=== PATIENT | female | born 1940 | race Caucasian/White ===

== ENCOUNTER 2017-11-09 12:36 | Inpatient (IN) | payer MEDICARE, MEDICAID ==
[~2017-11-09] VITALS: Ht 177.8 cm; Wt 102.0 kg
[~2017-11-09 12:36] MED LIST: ACIPHEX20 MG PO; AUGMENTIN875 MG OR; CELEBREX200 MG OR; DITROPAN5 MG/TA1 PO; LEVOTHYROXIN50 MCG PO; LORTAB 7.5 OR; MECLIZINE25 MG PO; PACERONE200 MG OR; PERCOCET 5/325M1 TAB PO; ZOCOR20 M1 PO; ZOLOFT50 MG PO
--- NOTE | 2017-11-09 12:47 | NUR ---
PT TO ROOM PER EMS
--- NOTE | 2017-11-09 13:12 | NUR ---
PT MEDICATED WITH 10 MG OF MORPHINE AND TAKEN TO XRAY.
[2017-11-09 13:24] LABS: HEMATOCRIT 43.5 % (37.0-47.0); HEMOGLOBIN 13.7 g/dl (12.0-16.0); IMMATURE GRANULOCYTES 0.5 % (0.0-1.0); MEAN CELL VOLUME 100.5 fL CALC (80.0-100.0); MEAN CORPUSCULAR HGB 31.6 pG CALC (26.0-32.0); MEAN CORPUSCULAR HGB CONC 31.5 g/L CALC (32.0-36.0); NEUT# 4.63 thou/uL (2.00-7.15); RED BLOOD COUNT 4.33 mill/uL (4.20-5.60); RED CELL DISTRI WIDTH 14.3 % (11.5-15.5)
[2017-11-09 13:43] LABS: ANION GAP 15 (6-22 (CALC)); BUN 21 mg/dL (8-23); BUN/CREATININE RATIO 21 (12-20 (CALC)); CALCIUM 9.8 mg/dL (8.4-10.2); CARBON DIOXIDE 24 mmol/l (22-30); CHLORIDE 110 mmol/l (95-108); GFR 54 ML/MIN (>=60 (CALC)); GFR FOR AFR.AMER. > 60 ML/MIN (>=60 (CALC)); GLUCOSE 95 mg/dL (82-115); POTASSIUM 4.2 mmol/l (3.5-5.1); SODIUM 145 mmol/l (137-146)
[2017-11-09 13:47] LABS: PROTHROMBIN TIME 10.7 SECONDS (9.0-12.5)
--- NOTE | 2017-11-09 14:22 | NUR ---
PT RETURNED FROM XRAY AND REPORTS PAIN IS 10/10 AND THE MORPHINE DID NOT HELP THE PAIN. VSS AND PT AWARE OF PENDING RESULTS AND WAIT TIME. MD NOTIFIED OF PAIN, AWAITING NEW ORDERS.
--- NOTE | 2017-11-09 15:00 | NUR ---
PT RESTING IN STRETCHER, FRINED AT BEDSIDE. PT DENIES ANY NEEDS AT THIS TIME AND AWARE OF PENDING RESULTS. PAIN NOW 03/30. AWARE
--- NOTE | 2017-11-09 15:30 | NUR ---
PATIENT RESTING AWAITING RESULTS FROM MD PATIENT STATES PAIN 8 ON 0-10 SCALE
--- NOTE | 2017-11-09 16:23 | NUR ---
PATIENT MEDICATED PER MD ORDER PAIN REDUCED 6 ON 0-10 SCALE
--- NOTE | 2017-11-09 17:00 | NUR ---
PT SITTING UPRIGHT IN STRETCHER EATING DINNER. PT PAIN NOW 4/10 AND IS AWARE OF PLAN FOR ADMISSION.
--- NOTE | 2017-11-09 17:19 | NUR ---
REPORT CALLED TO LORENZO ROSENBERG.
--- NOTE | 2017-11-09 17:29 | NUR ---
Admission Note Report Given to: SBAR PRINTED TO FLOOR Transported by: Wheelchair X Stretcher Transported with: X Nurse Transporter X Patent IV O2 Irrigation Installation Specialist
--- NOTE | 2017-11-09 17:30 | NUR ---
Admission Note Report Given to: LORENZO ROSENBERG. Transported by: Wheelchair X Stretcher Transported with: X Nurse Transporter X Patent IV O2 Professor Of Mechanical Engineering
--- NOTE | 2017-11-09 17:30 | NUR ---
FROM ER VIA STRETCHER ACCOMPANIED BY MIRANDA VENTURA. ASSISTED TO BED WITH MAX ASSIST. C/O NAUSEA AND PAIN ONLY WITH MOVEMENT. RIGHT LEG SHORTENING WITH ROTATION OUTWARD. ORIENTED TO ROOM AND CALL SYSTEM. SAFETY PRECAUTIONS REINFORCED. BED IN LOWEST POSITION WITH WHEELS LOCKED. CALL LIGHT WITHIN REACH. ENCOURAGED PT TO CALL FOR ANY NEEDS.
--- NOTE | 2017-11-09 18:00 | NUR ---
MEDICATED WITH ZOFRAN IVP FOR C/O NAUSEA.
[2017-11-09 18:03] VITALS: BP 133/60
--- NOTE | 2017-11-09 19:30 | NUR ---
BEDSIDE REPORT RECEIVED FROM PAO BURNS. PT IS RESTING IN BED IN SEMI FOWLERS. C/O PAIN WITH MOVEMENT TO RIGHT HIP. MORPHINE GIVEN DURING SHIFT CHANGE PRIOR TO VOID ON BEDPAN. RESPIRATIONS EVEN AND UNLABORED ON ROOM AIR. RIGHT LEG SHORTER THAN LEFT AND EXTERNALLY ROTATED. PLAN OF CARE DISCUSSED INCLUDING PLANNED SURGICAL PROCEDURE IN THE MORNING BY DR. ALEXANDRE. PT ENCOURAGED TO VERBALIZE CONCERNS. STATES UNDERSTANDING. SAFETY MEASURES IN PLACE. CALL LIGHT WITHIN REACH.
[2017-11-09 19:35] VITALS: BP 117/73
--- NOTE | 2017-11-09 20:40 | NUR ---
ANESTHSIA IN TO SEE PATIENT. PT AWARE THAT SHE WILL BE NPO AFTER MIDNIGHT AND MAY HAVE HER MORNING MEDICATIONS WITH SIPS OF WATER. SHE WAS ASSITED TO FRACTURE HOYOS TO VOID AFTER MORPHINE WAS EFFECTIVE AND TOLERATED WELL. ABRASION TO RIGHT ELBOW CLEANSED WITH NORMAL SALINE AND LEFT SPANISH LITERATURE PROFESSOR.
[2017-11-10] VITALS (10 sets, daily range): BP systolic 104–145; BP diastolic 40–59
--- NOTE | 2017-11-10 | NUR ---
PT TOLERATING DIET; IV CHANGED TO SALINE LOCK. PT DENIES ANY PAIN OR DISCOMFORT. PT ENCOURAGED TO USE IS IN ROOM. TELE IN PLACE. CALL LIGHT WITHIN REACH.
--- NOTE | 2017-11-10 00:12 | NUR ---
PT ASLEEP AT THIS TIME. ALL FLUIDS REMOVED AND PT AWARE THAT SHE IS NOW NPO. NO SIGNS OF DISTRESS NOTED; SHE SEEMS COMFORTABLE. RESPIRATIONS EVEN AND UNLABORED. HAS NO REQUESTS AT THIS TIME. CALL LIGHT WITHIN REACH.
--- NOTE | 2017-11-10 04:53 | NUR ---
PT HAS USED FRACTURE HOYOS TWICE TO VOID THIS SHIFT. RECEIVING MORPHINE AND LORTAB ALTENATELY TO MANAGE PAIN TO RIGHT HIP. HAS REMAINED NPO SICNE MIDNIGHT. MOVEMENT EXACERBATES PAIN. HAS NO FURTHER REQUESTS AT THIS TIME. SAFETY MEASURES IN PLACE. CALL LIGHT WITHIN REACH.
[2017-11-10 06:50] LABS: HEMATOCRIT 38.6 % (37.0-47.0)
--- NOTE | 2017-11-10 07:00 | NUR ---
RECEIVED BEDSIDE REPORT FROM ABDON CEDENO. RESTING IN SEMI FOWLERS WITH EYES CLOSED, AWAKENS EASILY. RESPS EVEN AND UNLABORED ON ROOM AIR. REPORTS PAIN IN RIGHT HIP 10/10 WITH MOVEMENT, WILL MEDICATE PER MAR. INSTRUCTED PT TO CONTINUE NPO STATUS, PT VERBALIZED UNDERSTANDING. PLAN OF CARE DISCUSSED. SAFETY PRECAUTIONS REINFORCED. BED IN LOWEST POSITION WITH WHEELS LOCKED. CALL LIGHT WITHIN REACH. WILL CONTINUE TO MONITOR.
--- NOTE | 2017-11-10 09:25 | NUR ---
DR TIMMONS IN WITH PT.
--- NOTE | 2017-11-10 09:40 | NUR ---
TO OR VIA BED ACCOMPANIED BY TAQUERIA VENTURA AND SOL VENTURA.
--- NOTE | 2017-11-10 13:45 | NUR ---
FROM OR VIA BED ACCOMPANIED BY TAUQERIA VENTURA AND SOL RN. RESPS EVEN AND UNLABORED ON O2 VIA NC. DRESSING TO RIGHT HIP CDI. SCD TO LEFT LOWER EXTREMITY. VOICES NO NEEDS AT THIS TIME. ORIENTED TO ROOM AND CALL SYSTEM. SAFETY PRECAUTIONS REINFORCED. BED IN LOWEST POSITION WITH WHEELS LOCKED. CALL LIGHT WIHTIN REACH. WILL CONTINUE TO MONITOR.
--- NOTE | 2017-11-10 17:28 | NUR ---
RESTING IN SEMI FOWLERS, #20 LW INFUSING WITHOUT DIFFICULTY, SITE APPEARS HEALTHY. RESPS EVEN AND UNLABORED ON ROOM AIR. DRESSING TO RIGHT HIP CDI, PEDAL PULSES PRESENT, TOES TO BILAT FEET WARM TO TOUCH. BRISK CAP REFILL, ICE PACK TO RIGHT HIP. HYPOACTIVE BOWEL SOUNDS TO 4 QUADS. TOLERATING ICE CHIPS WITHOUT C/O NAUSEA. SCD TO LEFT LOWER EXTREMITY. CALL LIGHT WITHIN REACH. WILL CONTINUE TO MONITOR.
--- NOTE | 2017-11-10 18:44 | NUR ---
TOLERATING CLEAR LIQUID DIET WITHOUT C/O NAUSEA. DENIES PAIN OR DISCOMFORT. CALL LIGHT WITHIN REACH.
--- NOTE | 2017-11-10 19:20 | NUR ---
PT WOKE FOR ASSESSMENT. PT DENIES ANY PAIN OR DISCOMFORT. RESP EVEN AND UNLABORED. NO DISTRESS NOTED. ABD SOFT; HYPOACTIVE BOWEL SOUNDS NOTED. TELE IN PLACE. PEDAL PULSES PALPATED BILAT. NO EDEMA NOTED. RIGHT HIP DRESSING CDI; NO S&S OF INFECTION. NO REDNESS OR EDEMA NOTED. IV LW PATENT; NO REDNESS OR EDEMA NOTED. PT EDUCATED ON INCENTIVE SPIROMETER; PT DEMONSTRATED USE. PT INSTRUCTED ON IMPORTANCE OF USE. FREQUENT ROUNDS MADE. SAFETY PRECAUTIONS REINFORCED. CALL LIGHT WITHIN REACH.
[2017-11-11 00:17] VITALS: BP 108/55
--- NOTE | 2017-11-11 04:00 | NUR ---
PT DENIES ANY PAIN OR DISCOMFORT. RESP EVEN AND UNLABORED. NO DISTRESS NOTED. TELE IN PLACE. IV PATENT; FLUSHED WITHOUT DIFFICULTY. PT ENCOURAGED TO COUGH & DEEP BREATHE. RIGHT HIP DRESSING;CDI. SAFETY PRECAUTIONS REINFORCED. CALL LIGHT WITHIN REACH.
[2017-11-11 05:11] VITALS: BP 115/63
[2017-11-11 05:57] LABS: HEMOGLOBIN 10.5 g/dl (12.0-16.0); MEAN CELL VOLUME 102.7 fL CALC (80.0-100.0); MEAN CORPUSCULAR HGB 31.7 pG CALC (26.0-32.0); MEAN CORPUSCULAR HGB CONC 30.9 g/L CALC (32.0-36.0); RED BLOOD COUNT 3.31 mill/uL (4.20-5.60); RED CELL DISTRI WIDTH 14.4 % (11.5-15.5)
[2017-11-11 06:24] LABS: ANION GAP 15 (6-22 (CALC)); BUN 19 mg/dL (8-23); BUN/CREATININE RATIO 19 (12-20 (CALC)); CALCIUM 8.9 mg/dL (8.4-10.2); CARBON DIOXIDE 24 mmol/l (22-30); CHLORIDE 107 mmol/l (95-108); GFR 54 ML/MIN (>=60 (CALC)); GFR FOR AFR.AMER. > 60 ML/MIN (>=60 (CALC)); GLUCOSE 100 mg/dL (82-115); POTASSIUM 4.1 mmol/l (3.5-5.1); SODIUM 142 mmol/l (137-146)
--- NOTE | 2017-11-11 07:00 | NUR ---
SHIFT CHANGE REPORT FORM SCOTT, PT AWAKE ALERT AND ORIENTED, C/O R. HIP PAIN @ 8/10 AT THIS TIME, ELIMINATION NEEDS ADDRESSED, O2 @ 2/ VIA NC IN PLACE, WILL ADDRESS NEEDS AND CONTINUE TO MONITOR, CALL LAZO IN REACH.
[2017-11-11 08:25] VITALS: BP 106/57
[2017-11-11 11:05] VITALS: BP 95/55
--- NOTE | 2017-11-11 11:51 | NUR ---
LETHARGIC AT THIS TIME AND FALLS ASLEEP DURING CONVERSATION WITH NURSE, MEDICATED FOR PAIN EARLIER WHICH MAY BE CAUSE FOR CONDITION. O2 REMOVED AND PT DESAT TO 85% ON R/A BUT IMPROVED WITH DEEP BREATHING. WILL CONTINUE TO MONITOR.
[2017-11-11 15:36] VITALS: BP 108/63
--- NOTE | 2017-11-11 16:07 | NUR ---
SLEEPING AT THIS TIME, BREATHING EVEN AND NON-LABORED, CALL LAZO IN REACH.
--- NOTE | 2017-11-11 16:12 | NUR ---
Talked to patient today about her medications. She stated that she felt lesser pain after her surgery. Discussed with patient about side effect of amiodarone. Pt. did not experience any side effects. Patient said to have dry mouth with sertraline, but overall tolerable with this medication. Patient said that percocet helps reduced her pain. Patient does not have any other questions to the pharmacy at this time.
--- NOTE | 2017-11-11 17:12 | NUR ---
PT WAS SEEN RESTING SUPINE IN THE BED. ATTEMPTED PM TX HOWEVER, PT REFUSED STATING THAT SHE WAS TOO DROWSY AND WOULD LIKE TO START PHYSICAL THERAPY TOMORROW.
[2017-11-11 19:00] VITALS: BP 120/71
--- NOTE | 2017-11-11 19:20 | NUR ---
PT WOKE FOR ASSESSMENT. PT LETHARGIC; ORIENTED TO MONTH AND PLACE. PT DENIES ANY PAIN OR DISCOMFORT. RESP EVEN AND UNLABORED WITH O2 IN PLACE. NO DISTRESS NOTED. PT ENCOURAGED TO USE IS IN ROOM; PT EDUCATED ON IMPORTANCE OF USING. ABD SOFT; HYPOACTIVE BOWEL SOUNDS NOTED. SURGICAL INCISIONS X2 TO RIGHT HIP; SMALL AMOUNT OF SEROSANGUINEOUS DRAINAGE NOTED. +1 EDEMA TO RIGHT LEG NOTED. PEDAL PULSES PALPATED BILAT. IV LW PATENT; FLUSHED WITHOUT DIFFICULTY. TELE IN PLACE. PT INCONTINENT OF URINE; 2 PERSON ASSIST; BED CHANGED; CARE PROVIDED TO PT. PT ENCOURAGED TO VERBALIZE CONCERNS. FREQUENT ROUNDS MADE. CALL LIGHT WITHIN REACH.
--- NOTE | 2017-11-12 00:10 | NUR ---
RESP EVEN AND UNLABORED WITH O2 IN PLACE. NO DISTRESS NOTED. TELE IN PLACE. BED ALARM ON FOR SAFETY PRECAUTION. CALL LIGHT WITHIN REACH.
[2017-11-12 00:47] VITALS: BP 128/50
--- NOTE | 2017-11-12 04:10 | NUR ---
RESP EVEN AND UNLABORED WITH O2 IN PLACE. NO DISTRESS NOTED. TELE IN PLACE. BED ALARM ON. CALL LIGHT WITHIN REACH.
[2017-11-12 04:33] VITALS: BP 110/57
[2017-11-12 06:15] LABS: HEMOGLOBIN 10.5 g/dl (12.0-16.0); IMMATURE GRANULOCYTES 0.7 % (0.0-1.0); MEAN CELL VOLUME 102.4 fL CALC (80.0-100.0); MEAN CORPUSCULAR HGB 31.6 pG CALC (26.0-32.0); MEAN CORPUSCULAR HGB CONC 30.9 g/L CALC (32.0-36.0); NEUT# 8.74 thou/uL (2.00-7.15); RED BLOOD COUNT 3.32 mill/uL (4.20-5.60); RED CELL DISTRI WIDTH 14.2 % (11.5-15.5)
[2017-11-12 06:36] LABS: ANION GAP 17 (6-22 (CALC)); BUN 20 mg/dL (8-23); BUN/CREATININE RATIO 23 (12-20 (CALC)); CALCIUM 8.9 mg/dL (8.4-10.2); CARBON DIOXIDE 24 mmol/l (22-30); CHLORIDE 105 mmol/l (95-108); CREATININE 0.9 mg/dL (0.5-1.0); GFR > 60 ML/MIN (>=60 (CALC)); GFR FOR AFR.AMER. > 60 ML/MIN (>=60 (CALC)); GLUCOSE 99 mg/dL (82-115); MAGNESIUM 1.9 mg/dL (1.6-2.3); POTASSIUM 4.6 mmol/l (3.5-5.1); SODIUM 142 mmol/l (137-146)
[2017-11-12 08:07] VITALS: BP 95/54
--- NOTE | 2017-11-12 08:20 | NUR ---
PT RESTING WITH EYES CLOSED; AROUSED EASILY TO VERBAL STIMULI; NO COMPLAINTS OF PAIN OR DISCOMFORT VOICED; DRSG TO RT HIP WITH MODERATE AMOUNT OF SEROUSAGINOUS DRAINAGE NOTED, AREA CLEANED WITH BETADINE AND TELFA APPLIED AND SECURED WITH LARGE TEGADERM; SCD TO LLE; PT A/O X2, REORIENTATION TO TIME SUCCESSFUL; CALL LAZO WITHIN REACH; WILL CONTINUE TO MONITOR.
[2017-11-12 11:39] VITALS: BP 113/41
--- NOTE | 2017-11-12 14:14 | NUR ---
PHYSICAL THERAPY IN WITH PT; PT MAX ASSIST TO RECLINER; CALL LAZO WITHIN REACH; BED ALARM IN PLACE FOR SAFETY; WILL CONTINUE TO MONITOR.
--- NOTE | 2017-11-12 14:18 | NUR ---
Pt. seen this PM for functional activity of transfer training. HOB elevated, pt. instructed on scooting and using UE's to assist. However after a few attempts nursing contacted to assist in scooting pt. to edge of bed, max assist x2 as pt. unable to advance right LE to edge of bed. Once sit at edge of bed reviewed with pt. sit to stand using UE's for push off, however was unable to stand. Reviewed with pt. pivot transfer followed by same with max assist x3 to recliner, pt. maintained flexed posture during transfer, minimally weight bearing on right LE. Sitting in recliner pt. instructed on and participated in AROM of knees and ankles. Pt. performed scooting forward and back sitting in recliner and used UE's on armrests to support herself. LE's elevated, call light reviewed and left within reach. Pt. left resting comfortably in recliner watching TV and without complaints. Nurse informed of same.
--- NOTE | 2017-11-12 15:15 | NUR ---
PT MAX ASSIST BACK TO BED; PT C/O NAUSEA; MEDICATED ORDERED; CALL LAZO WITHIN REACH; WILL CONTINUE TO MONITOR.
[2017-11-12] MEDS ORDERED: PERCOCET 10/31 COMBO PO (15:26)
[2017-11-12] MEDS ORDERED: XARELTO10 MG PO (15:26)
[2017-11-12 15:49] VITALS: BP 129/79
--- NOTE | 2017-11-12 18:15 | NUR ---
REPORT CALLED TO PIPO AT [facility]
== END 2017-11-12 19:30 | DRG 481 ==
LOC: ED 12:36 → ED-I 15:50 → ED 16:15 → MS2 16:16
PROVIDERS: Family Medicine; Internal Medicine Nephrology; Nurse Practitioner Family; ADMIT Internal Medicine; ATTEND Internal Medicine
PROC: 0QS604Z Reposition Right Upper Femur with Internal Fixation Device, Open Approach (ICD-10-PCS; principal; 2017-11-10)
DX: S72.141A Displaced intertrochanteric fracture of right femur, initial encounter for closed fracture (principal); I47.1 Supraventricular tachycardia; I48.1 Persistent atrial fibrillation; S50.312A Abrasion of left elbow, initial encounter; E03.9 Hypothyroidism, unspecified; E78.5 Hyperlipidemia, unspecified; M15.9 Polyosteoarthritis, unspecified; W17.89XA Other fall from one level to another, initial encounter; Y92.481 Parking lot as the place of occurrence of the external cause; Z79.899 Other long term (current) drug therapy
CPT/HCPCS: J1650

== ENCOUNTER 2018-03-12 06:44 | Day surgery (SDC) | payer MEDICARE, MEDICAID ==
[~2018-03-12] VITALS: Ht 177.8 cm; Wt 98.4 kg
[~2018-03-12 06:44] MED LIST changes: +PERCOCET 10/31 COMBO PO; +XARELTO10 MG PO
[2018-03-12 08:20] VITALS: BP 130/69
== END 2018-03-12 08:59 | disposition home or self-care (01) ==
LOC: ORM 06:44
PROVIDERS: ATTEND Anesthesiology Pain Medicine
PROC: 3E0R3BZ Introduction of Anesthetic Agent into Spinal Canal, Percutaneous Approach (ICD-10-PCS; principal; 2018-03-12)
PROC: 3E0R33Z Introduction of Anti-inflammatory into Spinal Canal, Percutaneous Approach (ICD-10-PCS; 2018-03-12)
DX: M51.36 Other intervertebral disc degeneration, lumbar region (principal); M12.9 Arthropathy, unspecified; M54.16 Radiculopathy, lumbar region
CPT/HCPCS: J1100; Q9967

== ENCOUNTER 2018-03-26 07:35 | Day surgery (SDC) | payer MEDICARE, MEDICAID ==
[~2018-03-26] VITALS: Ht 177.8 cm; Wt 90.7 kg
[2018-03-26 09:09] VITALS: BP 128/58
== END 2018-03-26 10:00 | disposition home or self-care (01) ==
LOC: ORM 07:35
PROVIDERS: ATTEND Anesthesiology Pain Medicine
PROC: 3E0U33Z Introduction of Anti-inflammatory into Joints, Percutaneous Approach (ICD-10-PCS; principal; 2018-03-26)
PROC: 3E0U3BZ Introduction of Anesthetic Agent into Joints, Percutaneous Approach (ICD-10-PCS; 2018-03-26)
DX: M76.31 Iliotibial band syndrome, right leg (principal); M25.551 Pain in right hip
CPT/HCPCS: J1100; Q9967

== ENCOUNTER 2019-07-13 15:34 | Emergency (ER) | payer MEDICARE, MEDICAID ==
[~2019-07-13] VITALS: Ht 177.8 cm; Wt 100.0 kg
[2019-07-13 16:13] LABS: HEMATOCRIT 44.5 % (37.0-47.0); HEMOGLOBIN 13.8 g/dl (12.0-16.0); MEAN CELL VOLUME 99.1 fL CALC (80.0-100.0); MEAN CORPUSCULAR HGB 30.7 pG CALC (26.0-32.0); NEUT# 7.43 thou/uL (2.00-7.15); RED BLOOD COUNT 4.49 mill/uL (4.20-5.60); RED CELL DISTRI WIDTH 13.7 % (11.5-15.5)
[2019-07-13 16:27] LABS: BILIRUBIN, TOTAL 0.8 mg/dL (0.0-1.4); CREATININE 1.1 mg/dL (0.5-1.0); POTASSIUM 4.6 mmol/l (3.5-5.1)
[2019-07-13 16:32] LABS: TOTAL PROTEIN 7.1 g/dL (6.3-8.2)
[2019-07-13] MEDS ORDERED: CELEBREX100 M1 PO (17:46)
[2019-07-13 19:24] VITALS: BP 119/72
== END 2019-07-13 18:50 | disposition short-term general hospital (02) ==
LOC: ED 15:34
PROVIDERS: Emergency Medicine
DX: R07.9 Chest pain, unspecified (principal); R79.89 Other specified abnormal findings of blood chemistry; R06.02 Shortness of breath

== ENCOUNTER 2020-06-16 14:58 | Inpatient (IN) | payer MEDICARE, MEDICAID ==
[~2020-06-16] VITALS: Ht 175.3 cm; Wt 100.5 kg
[2020-06-16] VITALS (7 sets, daily range): BP systolic 114–133; BP diastolic 52–68
[~2020-06-16 14:58] MED LIST changes: +CELEBREX100 M1 PO
--- NOTE | 2020-06-16 14:58 | NUR ---
PT TO ROOM VIA EMS
[2020-06-16] MEDS ORDERED: ELIQUIS5 MG PO (15:14)
[2020-06-16] MEDS ORDERED: FORTEO600 MCG/2. IN (15:14)
[2020-06-16] MEDS ORDERED: FERRAPLUS 90 PO (15:15)
[2020-06-16 15:18] LABS: IMMATURE GRANULOCYTES 0.2 % (0.0-5.0); MEAN CORPUSCULAR HGB 21.9 pG CALC (26.0-32.0); MEAN CORPUSCULAR HGB CONC 26.2 g/dL CAL (32.0-36.0); NEUT# 3.22 thou/uL (2.00-7.15); RED BLOOD COUNT 3.1 mill/uL (4.20-5.60); RED CELL DISTRI WIDTH 23.9 % (11.5-15.5)
[2020-06-16 15:26] LABS: MEAN CELL VOLUME 83.9 fL CALC (80.0-100.0)
[2020-06-16 15:27] LABS: HEMOGLOBIN 6.8 g/dl (12.0-16.0)
[2020-06-16 15:36] LABS: ALBUMIN 3.6 g/dL (3.2-5.0); ALKALINE PHOSPHATASE 75 u/l (38-126); ANION GAP 13 (6-22 (CALC)); BUN 20 mg/dL (8-23); BUN/CREATININE RATIO 19 (12-20 (CALC)); CARBON DIOXIDE 25 mmol/l (22-30); CHLORIDE 107 mmol/l (95-108); GFR 54 ML/MIN (>=60 (CALC)); GFR FOR AFR.AMER. > 60 ML/MIN (>=60 (CALC)); LIPASE 70 u/l (23-300); POTASSIUM 3.8 mmol/l (3.5-5.1); SGOT/AST 23 u/l (9-36); SODIUM 141 mmol/l (137-146); TOTAL PROTEIN 6.1 g/dL (6.3-8.2)
[2020-06-16 15:38] LABS: BILIRUBIN, TOTAL 0.4 mg/dL (0.0-1.4)
--- NOTE | 2020-06-16 17:17 | NUR ---
PT SEEN BY DR LYNCH, WAS SEEN TO HAVE LOW HGB. ONE UNIT PRBSs INFUSING AT THIS TIME WITHOUT ADVERSE REACTION. REPORT CALLED TO ABDON, PT TO FLOOR SOON.
--- NOTE | 2020-06-16 17:27 | NUR ---
PT ARRIVED TO UNIT VIA STRETCHER WITH ER STAFF; ALERT AND ORIENTED. AMBULATED TO BATHROOM TO VOID; SPECIMEN COLLECTED AND SENT TO LAB. AMBULATED TO BED TO SIT. BLOOD TRANSFUSION INFUSING UPON ARRIVAL AT 150 ML/HR; PT TOLERATING WELL. C/O 5/10 MIDSTERNAL CP THAT QUICKLY SUBSIDED; PT REPORTS THAT SHE THINKS IT WAS JUST GAS; NO OTHER SYMPTOMS; REVIEWED S/S OF REACTION AND PT DENIES ALL. RESPIRATIONS EVEN AND UNLABORED ON ROOM AIR; SPO2 100%; HUMIDIFIED OXYGEN 2L APPLIED PER ADMISSION ORDER. PT AWARE THAT WE NEED STOOL SPECIMENS; REPORTS 2 BOWEL MOVEMENTS PER WEEK HER NORMAL; LBM 2 DAYS AGO SOFT AND BLACK. LUNGS ARE CLEAR; NEURO CHECK WNL; 2+ ANKLE EDEMA; REPORTS URINARY STRESS INCONTINENCE. ORIENTED TO ROOM AND CALL LIGHT SYSTEM. PLAN OF CARE REVIEWED; PT ENCOURAGED TO VERBALIZE CONCERNS. STATES UNDERSTANDING. SAFETY MEASURES IN PLACE. CALL LIGHT WITHIN REACH.
--- NOTE | 2020-06-16 17:39 | NUR ---
TO FLOOR WITHOUT INCIDENT, REPORT WAS TO ABDON.
[2020-06-16 19:05] LABS: URINE BILIRUBIN - DIPSTICK NEGATIVE (NEGATIVE); URINE BLOOD DIPSTICK NEGATIVE (NEGATIVE); URINE COLOR YELLOW; URINE GLUCOSE - DIPSTICK NEGATIVE (NEGATIVE); URINE KETONE NEGATIVE (NEGATIVE); URINE LEUK ESTERASE NEGATIVE (NEGATIVE); URINE NITRITE - DIPSTICK POSITIVE (Negative); URINE PH 6.5 (4.5-8.0); URINE PROTEIN - DIPSTICK NEGATIVE (NEG-TRACE); URINE UROBILINOGEN - DIPSTICK 0.2 E.U./dL (0.2)
[2020-06-16 19:11] LABS: URINE BACTERIA MODERATE hpf; URINE RBC 0-2 RBC/hpf (0-5); URINE SQUAMOUS EPITHELIAL CELL FEW EPI/hpf (0-FEW); URINE WBC 0-2 WBC/hpf (0-5)
--- NOTE | 2020-06-16 19:34 | NUR ---
PT SITTING IN BED. A&O X3. NO DISTRESS NOTED. BLOOD TRANSFUSION COMPLETE. PT DENIES ANY PAIN OR NEW ONSET OF SYMPTOMS. VSS. IV FLUIDS CONNECTED AND SET AT 75 ML/HR PER MD ORDERS. NO OTHER NEEDS AT THIS TIME. ASSESSMENT COMPLETED. DISCUSSED POC. CALL LIGHT IN REACH. CONTINUE TO MONITOR.
--- NOTE | 2020-06-16 23:28 | NUR ---
PT SLEEPING IN BED. RESP EVEN AND UNLABORED. CONTINUE TO MONITOR.
[2020-06-17 04:08] VITALS: BP 129/57
--- NOTE | 2020-06-17 05:36 | NUR ---
PT LAYING IN BED. NO NEEDS OR DISTRESS AT THIS TIME. NEW IV INITIATED X1 ATTEMPT, #22 RH. CALL LIGHT IN REACH. CONTINUE TO MONITOR.
[2020-06-17 05:43] LABS: HEMATOCRIT 26.8 % (37.0-47.0); HEMOGLOBIN 7.3 g/dl (12.0-16.0); MEAN CELL VOLUME 84.5 fL CALC (80.0-100.0); MEAN CORPUSCULAR HGB CONC 27.2 g/dL CAL (32.0-36.0); RED BLOOD COUNT 3.17 mill/uL (4.20-5.60); RED CELL DISTRI WIDTH 22.7 % (11.5-15.5)
[2020-06-17 06:08] LABS: ANION GAP 8 (6-22 (CALC)); BUN 16 mg/dL (8-23); BUN/CREATININE RATIO 16 (12-20 (CALC)); CARBON DIOXIDE 28 mmol/l (22-30); CHLORIDE 110 mmol/l (95-108); GFR 54 ML/MIN (>=60 (CALC)); GFR FOR AFR.AMER. > 60 ML/MIN (>=60 (CALC)); SODIUM 142 mmol/l (137-146)
[2020-06-17 07:18] VITALS: BP 123/63
--- NOTE | 2020-06-17 07:20 | NUR ---
REPORT RECEIVED FROM LORENZO LARA. PT RESTING IN BED SEMI FOWLERS; ALERT AND ORIENTED. DENIES PAIN. RESPIRATIONS EVEN AND UNLABORED ON ROOM AIR; SPOW 98%. IV FLUIDS INFUSING WITHOUT DIFFICULTY; IV SITE APPEARS HEALTHY. TELE ON. PLAN OF CARE REVIEWED. PT ENCOURAGED TO VERALIZE CONCERNS. STATES UNDERSTANDING. SAFETY MEASURES IN PLACE. CALL LIGHT WITHIN REACH.
--- NOTE | 2020-06-17 08:05 | NUR ---
DR. DILLON AT BEDSIDE. DR. COY ON UNIT FOR CONSULT.
--- NOTE | 2020-06-17 08:34 | NUR ---
PT CONSENTED TO PNEUMOCOCCAL VAX, CHECKED [place] SHOTS AND PT RECEVED PPSV23 ON 04/21/20. NO FURTHER SHOTS NEEDED AT THIS TIME
[2020-06-17 10:30] VITALS: BP 115/67
--- NOTE | 2020-06-17 12:33 | NUR ---
SITTING UP IN BED AFTER LUNCH; VISITOR AT BEDSIDE. ALERT AND OREINTED. DENIES PAIN. IV FLUIDS NOW INFUSING AT KVO. NO REQUESTS OR CONCERNS AT THIS TIME. CALL LIGHT WITHIN REACH.
[2020-06-17 15:00] VITALS: BP 124/65
--- NOTE | 2020-06-17 15:24 | NUR ---
PT C/O GAS PAINS IN HER ABDOMEN; REPORTS THAT SHE TAKES PEPTOBISMOL AT HOME. ORDER RECEIVED FROM [employer].
--- NOTE | 2020-06-17 16:39 | NUR ---
[place] EFFECTIVE FOR GAS PAIN. DIET ADVANCED TO REGULAR PER DR. COY; PT MAY HAVE REGULAR DIET UP UNITL BOWEL PREP ON SATURDAY. DIETARY NOTIFIED.
[2020-06-17 19:09] VITALS: BP 122/66
--- NOTE | 2020-06-17 19:27 | NUR ---
PT SITTING IN BED. A&O X3. NO DISTRESS NOTED. PT CURRENTLY ON RA WITH NO NEED FOR O2 USE. DENIES ANY PAIN AT THIS TIME. EDEMA TO BILATERAL LEGS NOTED. NO OTHER NEEDS AT THIS TIME. ASSESSMENT COMPLETED. DISCUSSED POC. CALL LIGHT IN REACH. CONTINUE TO MONITOR.
[2020-06-17 23:46] VITALS: BP 118/56
[2020-06-18] VITALS (9 sets, daily range): BP systolic 110–142; BP diastolic 51–73
--- NOTE | 2020-06-18 01:18 | NUR ---
PT SLEEPING IN BED. RESP EVEN AND UNLABORED. CONTINUE TO MONITOR
--- NOTE | 2020-06-18 04:03 | NUR ---
PT LAYING IN BED. NO NEEDS OR DISTRESS AT THIS TIME. CALL LIGHT IN REACH, CONTINUE TO MONITOR.
--- NOTE | 2020-06-18 04:04 | NUR ---
PT SLEEPING IN BED. NO DISTRESS NOTED. CONTINUE TO MONITOR.
--- NOTE | 2020-06-18 08:07 | NUR ---
RECIEVED REPORT FROM MADHU RN. PT RESTING IN SEMI FOWLERS POSITION EATING BREAKFAST UPON ENTERING ROOM. INTRODUCED SELF TO PT AND DISCUSSED POC. ASSESSMENT AND VITALS COMPLETED AT THIS TIME. RESPIRATIONS ARE EVEN AND UNLABORED, NO DISTRESS NOTED. LUNG SOUNDS ARE CLEAR. HEART RHYTHM IS NORMAL WITH TELE IN PLACE. BOWEL SOUNDS ARE ACTIVE IN ALL QUADRANTS, LAST REPORTED BM 06/14/20. PT REFUSED ANYTHING TO ASSIST WITH BM.EDUCATED PT ON NEEDING OCCULT STOOL. PT VERBALIZED UNDERSTANDING. RADIAL AND PEDAL PULSES ARE STRONG WITH NORMAL CAPILLARY REFILL. #22 IN RH RUNNING WITH NS PER ORDER, SITE APPEARS HEALTHY AND PATENT. PT DENIES ANY PAIN OR DISCOMFORTS AT THIS TIME.HOME MEDICATION FORTEO BROUGHT IN BY FAMILY, AWAITING FOR PHARMACY VERIFICATION. ALL SAFETY PRECAUTIONS ARE IN PLACE WITH CALL LIGHT IN REACH. WILL CONTINUE TO MONITOR
--- NOTE | 2020-06-18 11:38 | NUR ---
PT RESING IN SEMI FOWLERS POSITION TALKING ON PHONE. RESPIRATIONS ARE EVEN AND UNLABORED. NO DISTRESS NOTED. IV FLUIDS RUNNING PER ORDER. NO SIGNS OF ANY PAIN OR DISCOMFORTS. ALL SAFETY PRECAUTIONS ARE IN PLACE WITH CALL LIGHT IN REACH.WILL CONTINUE TO MONITOR.
--- NOTE | 2020-06-18 13:52 | NUR ---
PT COMPLAINS OF CRAMPING IN ABD DERAY NOTIFIED, SIMETHICONE TO BE ADMINISTERED.
--- NOTE | 2020-06-18 14:33 | NUR ---
TRANSFUSION OF RBC STARTED BY LORENZO GONZALEZ. PT EDUCATED ON S/S OF TRANSFUSION REACTION. PT VERABILZED UNDERSTANDING. RESPIRATIONS ARE EVEN AND UNLABROED WITH NO SIGNS OF DISTRESS NOTED. PT DENIES ANY PAIN. WRITTER TO STAY WITH PT FOR FIRST 15 MIN. ALL SAEFTY PRECAUTIONS ARE IN PLACE WITH CALL LIGHT IN REACH. WILL CONTINUE TO MONITOR
--- NOTE | 2020-06-18 14:44 | NUR ---
RBC RUNNING WITH EASE. PT DENIES ANY S/S OF TRANSFUSION REACTIONS. VITALS OBTAINED. RESPIRATIONS ARE EVEN AND UNLABORED WITH NO SIGNS OF DISTRESS NOTED. PT RE-EDUCTAED ON S/S OF TRANSFUSION REACTIONS. ALL SAFETY PRECAUTIONS ARE IN PLACE WITH CALL LIGHT IN REACH. WILL CONTINUE TO MONITOR
--- NOTE | 2020-06-18 15:04 | NUR ---
PT REQUEST TO GO BACK TO CLEAR LIQUID DIET. PT STATED "I THINK IT WAS THE SAUAGE FROM THIS MORNING THAT UPSET MY STOMACH." ORDERS FOR CLEAR LIQUID DIET IN. DIETARY NOTIFIED.
--- NOTE | 2020-06-18 15:30 | NUR ---
RBC RUNNING WITH EASE. PT DENIES ANY S/S OF TRANSFUSION REACTION. RESPIRATIONS ARE EVEN AND UNLABORED WITH NO SIGNS OF DISTRESS NOTED. ASSESSMENT REMAINS THE SAME. PT RE-EDUCATED ON S/S OF TRANSFUSION REACTIONS. PT VERBAILZED UNDERSTANDING. ALL SFAETY PRECAUTIONS ARE IN PLACE WITH CALL LIGHT IN REACH. WILL CONTINUE TO MONITOR
--- NOTE | 2020-06-18 16:30 | NUR ---
RBCS INFUSING WITH EASE. PT DENIES ANY S/S OF TRANSFUSION REACTIONS. PT RE-EDUCATED ON S/S OF TRANSFUSION REACTIONS. PT VERBAILZED UNDERSTANDING. ALL SFAETY PRECAUTIONS ARE IN PLACE WITH CALL LIGHT IN REACH. WILL CONTINUE TO MONITOR
--- NOTE | 2020-06-18 17:19 | NUR ---
TRANSFUSION OF RBC COMPLETED. PT DENIES ANY S/S OF TRANSFUSION REACTIONS. RESPIRATIONS ARE EVEN AND UNLABORED WITH NO SIGNS OF DISTRESS NOTED. ALL SFAETY PRECAUTIONS ARE IN PLACE WITH CALL LIGHT IN REACH. WILL CONTINUE TO MONITOR
--- NOTE | 2020-06-18 17:41 | NUR ---
MIRLAX ADMINISTERED AT THIS TIME TO ASSIST WITH BM
--- NOTE | 2020-06-18 19:40 | NUR ---
PT AWAKE RESTING IN BED. ALERT AND ORIENTED X3. VSS. RESP EVEN AND UNLABORED. LUNGS CLEAR BILAT. ABD SOFT AND NONDISTENDED WITH BOWEL SOUNDS PRESENT. NO LOWER EXT EDEMA NOTED. PEDAL PULSES PALPATED BILAT. IV SITE PATENT WITH NSS AT 20CC/HR. TELE SR. OFFERS NO COMPLAINTS. FREQUENT ROUNDS MADE. CALL LAZO WITHIN REACH.
[2020-06-19 00:02] VITALS: BP 117/58
--- NOTE | 2020-06-19 00:24 | NUR ---
RESTING IN BED WITH EYES CLOSED. RESP EVEN AND UNLABORED. IV SITE PATENT. TELE SR. FREQUENT ROUNDS MADE. CALL LAZO WITHIN REACH.
[2020-06-19 03:45] VITALS: BP 116/57
--- NOTE | 2020-06-19 04:20 | NUR ---
PT RESTING IN BED WITH EYES CLOSED. RESP EVEN AND UNLABORED. IV SITE PATENT. ASSESSMENT UNCHANGED. TELE SR. FREQUENT ROUNDS MADE. CALL LAZO WITHIN REACH.
[2020-06-19 05:55] LABS: HEMOGLOBIN 8.7 g/dl (12.0-16.0); IMMATURE GRANULOCYTES 0.4 % (0.0-5.0); MEAN CELL VOLUME 84.5 fL CALC (80.0-100.0); MEAN CORPUSCULAR HGB 23.7 pG CALC (26.0-32.0); MEAN CORPUSCULAR HGB CONC 28.1 g/dL CAL (32.0-36.0); NEUT# 2.97 thou/uL (2.00-7.15); RED BLOOD COUNT 3.67 mill/uL (4.20-5.60)
[2020-06-19 06:28] LABS: ANION GAP 8 (6-22 (CALC)); BUN 18 mg/dL (8-23); BUN/CREATININE RATIO 19 (12-20 (CALC)); CARBON DIOXIDE 26 mmol/l (22-30); CHLORIDE 109 mmol/l (95-108); CREATININE 0.9 mg/dL (0.5-1.0); GFR > 60 ML/MIN (>=60 (CALC)); GFR FOR AFR.AMER. > 60 ML/MIN (>=60 (CALC)); POTASSIUM 4.5 mmol/l (3.5-5.1); SODIUM 139 mmol/l (137-146)
[2020-06-19 08:11] VITALS: BP 126/60
--- NOTE | 2020-06-19 08:21 | NUR ---
ASSESSMENT DONE PT IS A&O X3. PT STATED HEADACHE BUT DENIES PAIN MEDICATION. PT STATED ABD CRAMPING GAS DROP GIVEN. PT STATED THAT HELPS HER. TELE IN PLACE.IVF IN FUSING WELL. PT DENIES ANY OTHER NEEDS AT THIS TIME. CALL LIGHT IN REACH.
[2020-06-19 11:03] VITALS: BP 136/63
--- NOTE | 2020-06-19 12:05 | NUR ---
PT IS RESTING IN BED WITH NO S/S OF DISTRESS NOTED. PT STATED THE MEDICATION HELPED HER. PT DENIES ANY OTHER NEEDS AT THIS TIME. CALL LIGHT IN REACH.
[2020-06-19 15:25] VITALS: BP 146/80
--- NOTE | 2020-06-19 16:15 | NUR ---
PT CONTINUE TO DRINK HER NULYTELY. PT DENIES ANY NEEDS AT THIS TIME. CALL KEZIA IN REACH.
[2020-06-19 19:00] VITALS: BP 124/71
--- NOTE | 2020-06-19 20:15 | NUR ---
PT SITTING ON BSC UPON ENTERING ROOM. ASKING TO GET BACK INTO BED. ASSISTED PT, ASSESSEMENT COMPLETED. COMODE EMPTIED OF BLACK LIQUID STOOL MIX 3000CC.
[2020-06-20] VITALS (9 sets, daily range): BP systolic 89–137; BP diastolic 41–86
--- NOTE | 2020-06-20 01:05 | NUR ---
PT SLEEPING SOUNDLY AT THIS TIME. NO S/O DISTRESS NOTED AT THIS TIME.
--- NOTE | 2020-06-20 03:45 | NUR ---
ASSISTED PT TO BSC AND BACK TO BED. BLOOD IN WITH URINE, PT STATES SHE THINKS IT WAS STOOL. BRIGHT RED IN BSC. NO S/O DISTRESS.
--- NOTE | 2020-06-20 07:00 | NUR ---
OR TEAM HERE TO [employer] INSTRUCTOR PT FOR COLONOSCOPY.
--- NOTE | 2020-06-20 10:30 | NUR ---
PT HAS BEEN TO EGD/COLONOSCOPY THIS MORNING, RETURNS ALERT AND ORIENTED X 3. LUNGS CLEAR, RA. ABDOMEN SOFT, NO DISCOMFORT, POSITIVE BOWEL SOUNDS. PT PROVIDED ENSURE PER FULL LIQUID DIET, ENJOYED IT MUCH.
[2020-06-20] MEDS ORDERED: ANUCORT-HC25 MG RE (12:38)
[2020-06-20] MEDS ORDERED: LOVENOX40 MG/0.4 SC ×3 (12:55→13:17)
--- NOTE | 2020-06-20 13:54 | NUR ---
PT HAS BEEN DISCHARGED TO HOME. PT VERBALIZES UNDERSTANDING OF DC INSTRUCTIONS, TAKEN BY WHEELCHAIR TO VEHICLE. PT PROVIDED LOVENOX INJECTION PRIOR TO LEAVING, INSTRUCTED IN HOW TO DO IT HERSELF.
[2020-06-21] MEDS ORDERED: KEFLEX500 MG PO (07:29)
== END 2020-06-20 13:46 | disposition home or self-care (01) | DRG 394 ==
LOC: ED 14:58 → ED-I 15:48 → ED 16:01 → MS2 16:02
PROVIDERS: Family Medicine; Internal Medicine; Nurse Practitioner; ADMIT Internal Medicine; ATTEND Internal Medicine
PROC: 30233N1 Transfusion of Nonautologous Red Blood Cells into Peripheral Vein, Percutaneous Approach (ICD-10-PCS; principal; 2020-06-16)
PROC: 30233N1 Transfusion of Nonautologous Red Blood Cells into Peripheral Vein, Percutaneous Approach (ICD-10-PCS; 2020-06-18)
PROC: 0DJ08ZZ Inspection of Upper Intestinal Tract, Via Natural or Artificial Opening Endoscopic (ICD-10-PCS; 2020-06-20)
PROC: 0DBH8ZX Excision of Cecum, Via Natural or Artificial Opening Endoscopic, Diagnostic (ICD-10-PCS; 2020-06-20)
PROC: 0DBL8ZX Excision of Transverse Colon, Via Natural or Artificial Opening Endoscopic, Diagnostic (ICD-10-PCS; 2020-06-20)
PROC: 0DBN8ZX Excision of Sigmoid Colon, Via Natural or Artificial Opening Endoscopic, Diagnostic (ICD-10-PCS; 2020-06-20)
PROC: 0DBM8ZX Excision of Descending Colon, Via Natural or Artificial Opening Endoscopic, Diagnostic (ICD-10-PCS; 2020-06-20)
PROC: 3E0H8GC Introduction of Other Therapeutic Substance into Lower GI, Via Natural or Artificial Opening Endoscopic (ICD-10-PCS; 2020-06-20)
DX: K63.89 Other specified diseases of intestine (principal); D62 Acute posthemorrhagic anemia; K92.1 Melena; N39.0 Urinary tract infection, site not specified; I48.0 Paroxysmal atrial fibrillation; K63.5 Polyp of colon; E03.9 Hypothyroidism, unspecified; K64.4 Residual hemorrhoidal skin tags; K64.8 Other hemorrhoids; K59.09 Other constipation; B96.1 Klebsiella pneumoniae [K. pneumoniae] as the cause of diseases classified elsewhere; Z86.718 Personal history of other venous thrombosis and embolism; Z79.01 Long term (current) use of anticoagulants; Z86.711 Personal history of pulmonary embolism; Z11.59 Encounter for screening for other viral diseases
CPT/HCPCS: G0378; J1650; P9016; S0164

== ENCOUNTER 2021-07-28 17:10 | Emergency (ER) | payer MEDICARE, MEDICAID ==
[~2021-07-28] VITALS: Ht 175.3 cm; Wt 105.0 kg
[~2021-07-28 17:10] MED LIST changes: +ANUCORT-HC25 MG RE; +ELIQUIS5 MG PO; +FERRAPLUS 90 PO; +FORTEO600 MCG/2. IN; +KEFLEX500 MG PO; +LOVENOX40 MG/0.4 SC; +OMEPRAZOLE DR20 MG
[2021-07-28 17:34] LABS: HEMATOCRIT 42.4 % (37.0-47.0); HEMOGLOBIN 13.3 g/dl (12.0-16.0); IMMATURE GRANULOCYTES 0.2 % (0.0-5.0); MEAN CELL VOLUME 104.2 fL CALC (80.0-100.0); MEAN CORPUSCULAR HGB 32.7 pG CALC (26.0-32.0); MEAN CORPUSCULAR HGB CONC 31.4 g/dL CAL (32.0-36.0); NEUT# 3.63 thou/uL (2.00-7.15); RED BLOOD COUNT 4.07 mill/uL (4.20-5.60); RED CELL DISTRI WIDTH 12.7 % (11.5-15.5)
[2021-07-28 17:48] LABS: ALBUMIN 3.7 g/dL (3.2-5.0); ALKALINE PHOSPHATASE 80 u/l (38-126); ANION GAP 10 (6-22 (CALC)); BUN 20 mg/dL (8-23); BUN/CREATININE RATIO 21 (12-20 (CALC)); CARBON DIOXIDE 24 mmol/l (22-30); CHLORIDE 110 mmol/l (95-108); CREATININE 0.9 mg/dL (0.5-1.0); GFR 60 ML/MIN (>=60 (CALC)); GFR FOR AFR.AMER. > 60 ML/MIN (>=60 (CALC)); LIPASE 65 u/l (23-300); POTASSIUM 4.5 mmol/l (3.5-5.1); SGOT/AST 35 u/l (9-36); SODIUM 140 mmol/l (137-146); TOTAL PROTEIN 6.4 g/dL (6.3-8.2)
[2021-07-28 19:47] LABS: URINE BILIRUBIN - DIPSTICK NEGATIVE (NEGATIVE); URINE BLOOD DIPSTICK TRACE-INTACT (NEGATIVE); URINE COLOR YELLOW; URINE GLUCOSE - DIPSTICK NEGATIVE (NEGATIVE); URINE KETONE NEGATIVE (NEGATIVE); URINE LEUK ESTERASE SMALL (NEGATIVE); URINE NITRITE - DIPSTICK POSITIVE (Negative); URINE PH 5.5 (4.5-8.0); URINE PROTEIN - DIPSTICK NEGATIVE (NEG-TRACE); URINE UROBILINOGEN - DIPSTICK 0.2 E.U./dL (0.2)
[2021-07-28 19:53] LABS: URINE BACTERIA MODERATE hpf
[2021-07-28 20:44] VITALS: BP 130/75
== END 2021-07-29 08:13 | disposition home or self-care (01) ==
LOC: ED 17:10
PROVIDERS: Family Medicine
DX: R10.32 Left lower quadrant pain (principal); J18.9 Pneumonia, unspecified organism; I10 Essential (primary) hypertension; I48.91 Unspecified atrial fibrillation; Z86.711 Personal history of pulmonary embolism; Z86.718 Personal history of other venous thrombosis and embolism; Z85.038 Personal history of other malignant neoplasm of large intestine; Z20.822 Contact with and (suspected) exposure to COVID-19
CPT/HCPCS: Q9967

== ENCOUNTER 2022-04-19 09:03 | Day surgery (SDC) | payer MEDICARE, MEDICAID ==
[~2022-04-19 09:03] MED LIST changes: +OXYBUTININ PO; +SPIRONOLACT50 MG PO
[2022-04-19 12:21] VITALS: BP 119/62
== END 2022-04-19 11:55 | disposition home or self-care (01) ==
LOC: ENDO 09:03
PROVIDERS: ATTEND Surgery
PROC: 0DBN8ZX Excision of Sigmoid Colon, Via Natural or Artificial Opening Endoscopic, Diagnostic (ICD-10-PCS; principal; 2022-04-19)
DX: Z12.11 Encounter for screening for malignant neoplasm of colon (principal); D12.5 Benign neoplasm of sigmoid colon; K63.5 Polyp of colon; Z85.038 Personal history of other malignant neoplasm of large intestine; Z90.49 Acquired absence of other specified parts of digestive tract

== ENCOUNTER 2022-08-05 02:47 | Emergency (ER) | payer MEDICARE, MEDICAID ==
[~2022-08-05] VITALS: Ht 175.3 cm; Wt 100.0 kg
[2022-08-05] VITALS (13 sets, daily range): BP systolic 112–170; BP diastolic 49–124
[2022-08-05 03:20] LABS: HEMATOCRIT 39.4 % (37.0-47.0); HEMOGLOBIN 12.3 g/dl (12.0-16.0); IMMATURE GRANULOCYTES 0.2 % (0.0-5.0); MEAN CELL VOLUME 102.6 fL CALC (80.0-100.0); MEAN CORPUSCULAR HGB CONC 31.2 g/dL CAL (32.0-36.0); NEUT# 4.61 thou/uL (2.00-7.15); RED BLOOD COUNT 3.84 mill/uL (4.20-5.60); RED CELL DISTRI WIDTH 14.2 % (11.5-15.5)
[2022-08-05 03:38] LABS: ALBUMIN 3.9 g/dL (3.2-5.0); AMYLASE 55 u/l (30-110); ANION GAP 13 (6-22 (CALC)); BILIRUBIN, TOTAL 1.4 mg/dL (0.0-1.4); BUN 18 mg/dL (8-23); BUN/CREATININE RATIO 18 (12-20 (CALC)); CARBON DIOXIDE 26 mmol/l (22-30); CHLORIDE 108 mmol/l (95-108); GFR FOR AFR.AMER. > 60 ML/MIN (>=60 (CALC)); GFR OTHER RACES 53 ML/MIN (>=60 (CALC)); LIPASE 31 u/l (23-300); POTASSIUM 3.7 mmol/l (3.5-5.1); SODIUM 144 mmol/l (137-146); TOTAL PROTEIN 6.8 g/dL (6.3-8.2)
[2022-08-05 03:47] LABS: MYOGLOBIN 51 ng/mL (0 - 62)
[2022-08-05 03:52] LABS: ALKALINE PHOSPHATASE 179 u/l (38-126); SGOT/AST 151 u/l (9-36)
[2022-08-05 06:00] LABS: URINE BILIRUBIN - DIPSTICK NEGATIVE (NEGATIVE); URINE BLOOD DIPSTICK TRACE-INTACT (NEGATIVE); URINE COLOR YELLOW; URINE GLUCOSE - DIPSTICK NEGATIVE (NEGATIVE); URINE KETONE NEGATIVE (NEGATIVE); URINE PROTEIN - DIPSTICK NEGATIVE (NEG-TRACE); URINE UROBILINOGEN - DIPSTICK 0.2 E.U./dL (0.2)
[2022-08-05 06:02] LABS: URINE NITRITE - DIPSTICK POSITIVE (Negative)
[2022-08-05 06:20] LABS: URINE LEUK ESTERASE TRACE (NEGATIVE)
[2022-08-05 06:21] LABS: URINE BACTERIA MANY hpf; URINE EPITHELIAL CELLS FEW EPI/hpf (0-FEW)
[2022-08-05] MEDS ORDERED: TRAMADOL HYDROC50 M1 PO (09:33)
== END 2022-08-05 19:14 | disposition home or self-care (01) ==
LOC: ED 02:47
PROVIDERS: Emergency Medicine
DX: K82.1 Hydrops of gallbladder (principal); N83.201 Unspecified ovarian cyst, right side; I48.91 Unspecified atrial fibrillation; Z86.711 Personal history of pulmonary embolism; Z86.718 Personal history of other venous thrombosis and embolism
CPT/HCPCS: Q9967

== ENCOUNTER 2022-08-27 10:14 | Inpatient (IN) | payer MEDICARE, MEDICAID ==
[2022-08-27] VITALS (15 sets, daily range): BP systolic 96–132; BP diastolic 32–109
[~2022-08-27] VITALS: Ht 175.3 cm; Wt 91.5 kg
[~2022-08-27 10:14] MED LIST changes: +TRAMADOL HYDROC50 M1 PO
[2022-08-27 10:45] LABS: HEMATOCRIT 42.8 % (37.0-47.0); HEMOGLOBIN 13.5 g/dl (12.0-16.0); IMMATURE GRANULOCYTES 0.9 % (0.0-5.0); MEAN CELL VOLUME 100.2 fL CALC (80.0-100.0); MEAN CORPUSCULAR HGB 31.6 pG CALC (26.0-32.0); MEAN CORPUSCULAR HGB CONC 31.5 g/dL CAL (32.0-36.0); NEUT# 14.75 thou/uL (2.00-7.15); RED BLOOD COUNT 4.27 mill/uL (4.20-5.60); RED CELL DISTRI WIDTH 14.1 % (11.5-15.5)
[2022-08-27 10:57] LABS: URINE BLOOD DIPSTICK MODERATE (NEGATIVE); URINE GLUCOSE - DIPSTICK NEGATIVE (NEGATIVE); URINE KETONE TRACE mg/dL (NEGATIVE); URINE LEUK ESTERASE TRACE (NEGATIVE); URINE PH 5.5 (4.5-8.0); URINE PROTEIN - DIPSTICK 100 mg/dL (NEG-TRACE); URINE SPECIFIC GRAVITY 1.025; URINE UROBILINOGEN - DIPSTICK 0.2 E.U./dL (0.2)
[2022-08-27 11:05] LABS: URINE BILIRUBIN - DIPSTICK MODERATE (NEGATIVE); URINE NITRITE - DIPSTICK POSITIVE (Negative)
[2022-08-27 11:06] LABS: URINE COLOR DK. YELLOW
[2022-08-27 11:08] LABS: URINE BACTERIA MANY hpf; URINE CASTS FEW lpf (NONE-RARE); URINE SQUAMOUS EPITHELIAL CELL FEW EPI/hpf (0-FEW)
[2022-08-27 11:16] LABS: ALBUMIN 3.9 g/dL (3.2-5.0); ALKALINE PHOSPHATASE 135 u/l (38-126); BILIRUBIN, TOTAL 1.5 mg/dL (0.0-1.4); BUN 19 mg/dL (8-23); BUN/CREATININE RATIO 19 (12-20 (CALC)); CHLORIDE 108 mmol/l (95-108); GFR FOR AFR.AMER. > 60 ML/MIN (>=60 (CALC)); GFR OTHER RACES 53 ML/MIN (>=60 (CALC)); SGOT/AST 49 u/l (9-36); SODIUM 140 mmol/l (137-146); TOTAL PROTEIN 7.2 g/dL (6.3-8.2)
[2022-08-27 11:17] LABS: ANION GAP 15 (6-22 (CALC)); CARBON DIOXIDE 20 mmol/l (22-30); POTASSIUM 2.8 mmol/l (3.5-5.1)
[2022-08-27] MEDS ORDERED: ELIQUIS5 MG PO (15:43)
[2022-08-27] MEDS ORDERED: OXYBUTININ PO (15:46)
[2022-08-27] MEDS ORDERED: ZOCOR20 M1 PO (15:48)
[2022-08-27] MEDS ORDERED: LEVOTHYROXIN50 MCG PO (15:49)
[2022-08-27] MEDS ORDERED: PACERONE200 MG PO (15:50)
[2022-08-28] VITALS (9 sets, daily range): BP systolic 92–124; BP diastolic 37–61
[2022-08-28 05:29] LABS: HEMATOCRIT 38.6 % (37.0-47.0); HEMOGLOBIN 12.1 g/dl (12.0-16.0); MEAN CELL VOLUME 102.1 fL CALC (80.0-100.0); MEAN CORPUSCULAR HGB CONC 31.3 g/dL CAL (32.0-36.0); RED BLOOD COUNT 3.78 mill/uL (4.20-5.60); RED CELL DISTRI WIDTH 14.6 % (11.5-15.5)
[2022-08-28 05:43] LABS: BUN 23 mg/dL (8-23); BUN/CREATININE RATIO 26 (12-20 (CALC)); CARBON DIOXIDE 21 mmol/l (22-30); CHLORIDE 110 mmol/l (95-108); CREATININE 0.9 mg/dL (0.5-1.0); GFR FOR AFR.AMER. > 60 ML/MIN (>=60 (CALC)); GFR OTHER RACES 60 ML/MIN (>=60 (CALC)); MAGNESIUM 1.9 mg/dL (1.6-2.3); SODIUM 139 mmol/l (137-146)
[2022-08-28 05:50] LABS: ANION GAP 12 (6-22 (CALC)); POTASSIUM 3.9 mmol/l (3.5-5.1)
[2022-08-29] VITALS (8 sets, daily range): BP systolic 114–131; BP diastolic 53–72
[2022-08-29 05:56] LABS: HEMOGLOBIN 11.4 g/dl (12.0-16.0); MEAN CELL VOLUME 101.9 fL CALC (80.0-100.0); MEAN CORPUSCULAR HGB 31.4 pG CALC (26.0-32.0); MEAN CORPUSCULAR HGB CONC 30.8 g/dL CAL (32.0-36.0); RED BLOOD COUNT 3.63 mill/uL (4.20-5.60); RED CELL DISTRI WIDTH 14.8 % (11.5-15.5)
[2022-08-29 06:11] LABS: ANION GAP 7 (6-22 (CALC)); BUN 19 mg/dL (8-23); BUN/CREATININE RATIO 25 (12-20 (CALC)); CARBON DIOXIDE 23 mmol/l (22-30); CHLORIDE 112 mmol/l (95-108); CREATININE 0.8 mg/dL (0.5-1.0); GFR FOR AFR.AMER. > 60 ML/MIN (>=60 (CALC)); GFR OTHER RACES > 60 ML/MIN (>=60 (CALC)); MAGNESIUM 1.9 mg/dL (1.6-2.3); POTASSIUM 3.9 mmol/l (3.5-5.1); SODIUM 138 mmol/l (137-146)
[2022-08-30] VITALS (7 sets, daily range): BP systolic 126–147; BP diastolic 59–77
[2022-08-30 05:32] LABS: HEMATOCRIT 37.2 % (37.0-47.0); HEMOGLOBIN 11.8 g/dl (12.0-16.0); MEAN CELL VOLUME 100.5 fL CALC (80.0-100.0); MEAN CORPUSCULAR HGB 31.9 pG CALC (26.0-32.0); MEAN CORPUSCULAR HGB CONC 31.7 g/dL CAL (32.0-36.0); RED BLOOD COUNT 3.7 mill/uL (4.20-5.60); RED CELL DISTRI WIDTH 14.3 % (11.5-15.5)
[2022-08-30 05:46] LABS: ALBUMIN 3.3 g/dL (3.2-5.0); ALKALINE PHOSPHATASE 118 u/l (38-126); ANION GAP 8 (6-22 (CALC)); BUN 12 mg/dL (8-23); BUN/CREATININE RATIO 18 (12-20 (CALC)); CARBON DIOXIDE 27 mmol/l (22-30); CHLORIDE 107 mmol/l (95-108); CREATININE 0.7 mg/dL (0.5-1.0); GFR FOR AFR.AMER. > 60 ML/MIN (>=60 (CALC)); GFR OTHER RACES > 60 ML/MIN (>=60 (CALC)); MAGNESIUM 1.8 mg/dL (1.6-2.3); POTASSIUM 3.9 mmol/l (3.5-5.1); SGOT/AST 43 u/l (9-36); SODIUM 139 mmol/l (137-146); TOTAL PROTEIN 6.4 g/dL (6.3-8.2)
[2022-08-30 05:56] LABS: BILIRUBIN, TOTAL 0.7 mg/dL (0.0-1.4)
[2022-08-31] VITALS (8 sets, daily range): BP systolic 121–146; BP diastolic 65–85
[2022-09-01] VITALS (8 sets, daily range): BP systolic 102–139; BP diastolic 53–90
[2022-09-01 05:13] LABS: HEMATOCRIT 39.5 % (37.0-47.0); HEMOGLOBIN 12.7 g/dl (12.0-16.0); MEAN CELL VOLUME 98.5 fL CALC (80.0-100.0); MEAN CORPUSCULAR HGB 31.7 pG CALC (26.0-32.0); MEAN CORPUSCULAR HGB CONC 32.2 g/dL CAL (32.0-36.0); RED BLOOD COUNT 4.01 mill/uL (4.20-5.60); RED CELL DISTRI WIDTH 13.7 % (11.5-15.5)
[2022-09-01 05:35] LABS: BUN 11 mg/dL (8-23); BUN/CREATININE RATIO 15 (12-20 (CALC)); CHLORIDE 100 mmol/l (95-108); CREATININE 0.8 mg/dL (0.5-1.0); GFR FOR AFR.AMER. > 60 ML/MIN (>=60 (CALC)); GFR OTHER RACES > 60 ML/MIN (>=60 (CALC)); MAGNESIUM 1.9 mg/dL (1.6-2.3); SODIUM 140 mmol/l (137-146)
[2022-09-01 06:12] LABS: ANION GAP 7 (6-22 (CALC)); CARBON DIOXIDE 36 mmol/l (22-30); POTASSIUM 3.1 mmol/l (3.5-5.1)
[2022-09-01] MEDS ORDERED: TRAMADOL HYDROC50 M1 PO (11:01)
[2022-09-01] MEDS ORDERED: OMNICEF300 MG PO (11:02)
== END 2022-09-01 16:45 | DRG 871 ==
LOC: ED 10:14 → ED-I 12:50 → ED 13:15 → MS2 13:16
PROVIDERS: Family Medicine; ADMIT Internal Medicine; ATTEND Internal Medicine
DX: A41.59 Other Gram-negative sepsis (principal); J18.9 Pneumonia, unspecified organism; N39.0 Urinary tract infection, site not specified; I10 Essential (primary) hypertension; I48.0 Paroxysmal atrial fibrillation; R09.02 Hypoxemia; E03.9 Hypothyroidism, unspecified; Z85.038 Personal history of other malignant neoplasm of large intestine; Z86.711 Personal history of pulmonary embolism; Z86.718 Personal history of other venous thrombosis and embolism; Z20.822 Contact with and (suspected) exposure to COVID-19; Z23 Encounter for immunization
CPT/HCPCS: J0692; J3475

== ENCOUNTER 2022-09-27 14:13 | Observation (INO) | payer MEDICARE, MEDICAID ==
[~2022-09-27] VITALS: Ht 175.3 cm; Wt 90.8 kg
[2022-09-27] VITALS (9 sets, daily range): BP systolic 101–145; BP diastolic 47–100
[~2022-09-27 14:13] MED LIST changes: +OMNICEF300 MG PO; +PACERONE200 MG PO
[2022-09-27 14:43] LABS: HEMATOCRIT 39.9 % (37.0-47.0); HEMOGLOBIN 12.5 g/dl (12.0-16.0); IMMATURE GRANULOCYTES 0.1 % (0.0-5.0); MEAN CELL VOLUME 100.3 fL CALC (80.0-100.0); MEAN CORPUSCULAR HGB 31.4 pG CALC (26.0-32.0); MEAN CORPUSCULAR HGB CONC 31.3 g/dL CAL (32.0-36.0); NEUT# 7.57 thou/uL (2.00-7.15); RED BLOOD COUNT 3.98 mill/uL (4.20-5.60); RED CELL DISTRI WIDTH 14.4 % (11.5-15.5)
[2022-09-27 14:59] LABS: ALKALINE PHOSPHATASE 117 u/l (38-126); BUN 13 mg/dL (8-23); BUN/CREATININE RATIO 17 (12-20 (CALC)); CHLORIDE 104 mmol/l (95-108); CREATININE 0.8 mg/dL (0.5-1.0); GFR FOR AFR.AMER. > 60 ML/MIN (>=60 (CALC)); GFR OTHER RACES > 60 ML/MIN (>=60 (CALC)); LIPASE 16 u/l (23-300); POTASSIUM 3.7 mmol/l (3.5-5.1); SGOT/AST 25 u/l (9-36); SODIUM 140 mmol/l (137-146); TOTAL PROTEIN 7.2 g/dL (6.3-8.2)
[2022-09-27 15:01] LABS: ANION GAP 13 (6-22 (CALC)); BILIRUBIN, TOTAL 1.2 mg/dL (0.0-1.4); CARBON DIOXIDE 27 mmol/l (22-30)
[2022-09-27 17:23] LABS: URINE BILIRUBIN - DIPSTICK NEGATIVE (NEGATIVE); URINE BLOOD DIPSTICK TRACE-INTACT (NEGATIVE); URINE GLUCOSE - DIPSTICK 100 mg/dL (NEGATIVE); URINE KETONE 15 mg/dL (NEGATIVE); URINE LEUK ESTERASE TRACE (NEGATIVE); URINE PROTEIN - DIPSTICK 30 mg/dL (NEG-TRACE)
[2022-09-27 17:24] LABS: URINE COLOR AMBER; URINE NITRITE - DIPSTICK POSITIVE (Negative)
[2022-09-27 17:29] LABS: URINE RBC 0-2 RBC/hpf (0-5); URINE SQUAMOUS EPITHELIAL CELL FEW EPI/hpf (0-FEW)
[2022-09-28] VITALS (13 sets, daily range): BP systolic 88–136; BP diastolic 40–57
[2022-09-28 09:15] LABS: HEMATOCRIT 39.3 % (37.0-47.0); HEMOGLOBIN 12.3 g/dl (12.0-16.0); IMMATURE GRANULOCYTES 0.7 % (0.0-5.0); MEAN CELL VOLUME 101.8 fL CALC (80.0-100.0); MEAN CORPUSCULAR HGB 31.9 pG CALC (26.0-32.0); MEAN CORPUSCULAR HGB CONC 31.3 g/dL CAL (32.0-36.0); NEUT# 7.75 thou/uL (2.00-7.15); RED BLOOD COUNT 3.86 mill/uL (4.20-5.60); RED CELL DISTRI WIDTH 14.3 % (11.5-15.5)
[2022-09-28 09:24] LABS: ALKALINE PHOSPHATASE 89 u/l (38-126); ANION GAP 14 (6-22 (CALC)); BILIRUBIN, TOTAL 1.2 mg/dL (0.0-1.4); BUN 10 mg/dL (8-23); BUN/CREATININE RATIO 15 (12-20 (CALC)); CARBON DIOXIDE 20 mmol/l (22-30); CHLORIDE 107 mmol/l (95-108); CREATININE 0.6 mg/dL (0.5-1.0); GFR FOR AFR.AMER. > 60 ML/MIN (>=60 (CALC)); GFR OTHER RACES > 60 ML/MIN (>=60 (CALC)); POTASSIUM 4.2 mmol/l (3.5-5.1); SGOT/AST 32 u/l (9-36); SODIUM 137 mmol/l (137-146); TOTAL PROTEIN 5.9 g/dL (6.3-8.2)
[2022-09-28] MEDS ORDERED: OMEPRAZOLE20 MG PO (12:43)
[2022-09-29] VITALS (11 sets, daily range): BP systolic 114–151; BP diastolic 42–62
[2022-09-29 05:20] LABS: HEMATOCRIT 40.2 % (37.0-47.0); HEMOGLOBIN 12.6 g/dl (12.0-16.0); IMMATURE GRANULOCYTES 0.7 % (0.0-5.0); MEAN CELL VOLUME 100.2 fL CALC (80.0-100.0); MEAN CORPUSCULAR HGB 31.4 pG CALC (26.0-32.0); MEAN CORPUSCULAR HGB CONC 31.3 g/dL CAL (32.0-36.0); NEUT# 7.63 thou/uL (2.00-7.15); RED BLOOD COUNT 4.01 mill/uL (4.20-5.60); RED CELL DISTRI WIDTH 14.1 % (11.5-15.5)
[2022-09-29 05:50] LABS: ALBUMIN 3.2 g/dL (3.2-5.0); ALKALINE PHOSPHATASE 128 u/l (38-126); ANION GAP 15 (6-22 (CALC)); BUN 9 mg/dL (8-23); BUN/CREATININE RATIO 13 (12-20 (CALC)); CARBON DIOXIDE 23 mmol/l (22-30); CHLORIDE 106 mmol/l (95-108); CREATININE 0.7 mg/dL (0.5-1.0); GFR FOR AFR.AMER. > 60 ML/MIN (>=60 (CALC)); GFR OTHER RACES > 60 ML/MIN (>=60 (CALC)); POTASSIUM 3.6 mmol/l (3.5-5.1); SGOT/AST 29 u/l (9-36); SODIUM 140 mmol/l (137-146); TOTAL PROTEIN 5.9 g/dL (6.3-8.2)
[2022-09-30] VITALS (8 sets, daily range): BP systolic 108–148; BP diastolic 37–65
[2022-09-30 05:45] LABS: HEMATOCRIT 37.8 % (37.0-47.0); HEMOGLOBIN 11.9 g/dl (12.0-16.0); IMMATURE GRANULOCYTES 0.1 % (0.0-5.0); MEAN CELL VOLUME 100.3 fL CALC (80.0-100.0); MEAN CORPUSCULAR HGB 31.6 pG CALC (26.0-32.0); MEAN CORPUSCULAR HGB CONC 31.5 g/dL CAL (32.0-36.0); NEUT# 5.24 thou/uL (2.00-7.15); RED BLOOD COUNT 3.77 mill/uL (4.20-5.60); RED CELL DISTRI WIDTH 14.3 % (11.5-15.5)
[2022-09-30 06:15] LABS: ALBUMIN 2.6 g/dL (3.2-5.0); ALKALINE PHOSPHATASE 107 u/l (38-126); ANION GAP 8 (6-22 (CALC)); BILIRUBIN, TOTAL 0.6 mg/dL (0.0-1.4); BUN 8 mg/dL (8-23); BUN/CREATININE RATIO 12 (12-20 (CALC)); CHLORIDE 108 mmol/l (95-108); CREATININE 0.7 mg/dL (0.5-1.0); GFR FOR AFR.AMER. > 60 ML/MIN (>=60 (CALC)); GFR OTHER RACES > 60 ML/MIN (>=60 (CALC)); POTASSIUM 3.5 mmol/l (3.5-5.1); SGOT/AST 20 u/l (9-36); SODIUM 141 mmol/l (137-146)
[2022-09-30 06:22] LABS: CARBON DIOXIDE 29 mmol/l (22-30)
[2022-10-01 04:41] VITALS: BP 126/62
[2022-10-01 07:16] VITALS: BP 153/73
[2022-10-01 10:37] VITALS: BP 131/66
[2022-10-01 15:16] VITALS: BP 121/61
[2022-10-01 18:45] VITALS: BP 125/49
[2022-10-02 00:12] VITALS: BP 113/53
[2022-10-02 04:50] VITALS: BP 113/34
[2022-10-02 06:11] VITALS: BP 110/56
[2022-10-02 06:38] VITALS: BP 136/77
[2022-10-02 06:56] LABS: HEMOGLOBIN 11.5 g/dl (12.0-16.0); IMMATURE GRANULOCYTES 0.6 % (0.0-5.0); MEAN CELL VOLUME 99.2 fL CALC (80.0-100.0); MEAN CORPUSCULAR HGB 31.7 pG CALC (26.0-32.0); MEAN CORPUSCULAR HGB CONC 31.9 g/dL CAL (32.0-36.0); NEUT# 3.04 thou/uL (2.00-7.15); RED BLOOD COUNT 3.63 mill/uL (4.20-5.60); RED CELL DISTRI WIDTH 14.6 % (11.5-15.5)
[2022-10-02 07:25] LABS: ALBUMIN 2.7 g/dL (3.2-5.0); ALKALINE PHOSPHATASE 120 u/l (38-126); BILIRUBIN, TOTAL 0.4 mg/dL (0.0-1.4); BUN 6 mg/dL (8-23); BUN/CREATININE RATIO 8 (12-20 (CALC)); CARBON DIOXIDE 33 mmol/l (22-30); CHLORIDE 107 mmol/l (95-108); CREATININE 0.7 mg/dL (0.5-1.0); GFR FOR AFR.AMER. > 60 ML/MIN (>=60 (CALC)); GFR OTHER RACES > 60 ML/MIN (>=60 (CALC)); SGOT/AST 23 u/l (9-36); SODIUM 146 mmol/l (137-146); TOTAL PROTEIN 5.1 g/dL (6.3-8.2)
[2022-10-02 07:27] LABS: ANION GAP 9 (6-22 (CALC)); POTASSIUM 3.2 mmol/l (3.5-5.1)
[2022-10-02] MEDS ORDERED: PANTOPRAZOLE SO40 M1 PO (10:27)
[2022-10-02] MEDS ORDERED: LEVOFLOXACIN500MG PO (10:27)
[2022-10-02 11:28] VITALS: BP 136/78
== END 2022-10-02 13:11 ==
LOC: ED 14:13 → ED-I 18:56 → ED 19:38 → MS2 19:39
PROVIDERS: Internal Medicine; Nurse Practitioner; Nurse Practitioner Family; ADMIT Internal Medicine; ATTEND Internal Medicine
PROC: 0DB78ZX Excision of Stomach, Pylorus, Via Natural or Artificial Opening Endoscopic, Diagnostic (ICD-10-PCS; principal; 2022-09-28)
DX: K25.9 Gastric ulcer, unspecified as acute or chronic, without hemorrhage or perforation (principal); K31.9 Disease of stomach and duodenum, unspecified; K44.9 Diaphragmatic hernia without obstruction or gangrene; N39.0 Urinary tract infection, site not specified; K83.8 Other specified diseases of biliary tract; R78.81 Bacteremia; I10 Essential (primary) hypertension; I48.0 Paroxysmal atrial fibrillation; K76.89 Other specified diseases of liver; E78.5 Hyperlipidemia, unspecified; E03.9 Hypothyroidism, unspecified; B96.89 Other specified bacterial agents as the cause of diseases classified elsewhere; Z86.711 Personal history of pulmonary embolism; Z86.718 Personal history of other venous thrombosis and embolism; Z79.01 Long term (current) use of anticoagulants; Z85.038 Personal history of other malignant neoplasm of large intestine; Z95.828 Presence of other vascular implants and grafts; Z20.822 Contact with and (suspected) exposure to COVID-19
CPT/HCPCS: J1956; Q9967

== ENCOUNTER 2022-10-25 11:40 | Emergency (ER) | payer MEDICARE, MEDICAID ==
[2022-10-25] VITALS (16 sets, daily range): BP systolic 81–155; BP diastolic 47–120
[~2022-10-25] VITALS: Ht 175.3 cm; Wt 91.0 kg
[~2022-10-25 11:40] MED LIST changes: +LEVOFLOXACIN500MG PO; +OMEPRAZOLE20 MG PO; +PANTOPRAZOLE SO40 M1 PO
[2022-10-25 12:37] LABS: BASO% 0.4 % (0-3); EOS% 2.7 % (0-8); HEMATOCRIT 40.5 % (37.0-47.0); HEMOGLOBIN 13.1 g/dl (12.0-16.0); IMMATURE GRANULOCYTES 0.2 % (0.0-5.0); LYMPH% 17.5 % (15-41); MEAN CELL VOLUME 98.5 fL CALC (80.0-100.0); MEAN CORPUSCULAR HGB 31.9 pG CALC (26.0-32.0); MEAN CORPUSCULAR HGB CONC 32.3 g/dL CAL (32.0-36.0); MONO% 6.7 % (2-13); NEUT# 4.02 thou/uL (2.00-7.15); NEUT% 72.5 % (42-76); RED BLOOD COUNT 4.11 mill/uL (4.20-5.60); RED CELL DISTRI WIDTH 15.6 % (11.5-15.5)
[2022-10-25 12:51] LABS: ALKALINE PHOSPHATASE 117 u/l (38-126); ANION GAP 10 (6-22 (CALC)); BUN 19 mg/dL (8-23); BUN/CREATININE RATIO 23 (12-20 (CALC)); CARBON DIOXIDE 28 mmol/l (22-30); CHLORIDE 110 mmol/l (95-108); CREATININE 0.8 mg/dL (0.5-1.0); GFR FOR AFR.AMER. > 60 ML/MIN (>=60 (CALC)); GFR OTHER RACES > 60 ML/MIN (>=60 (CALC)); LIPASE 53 u/l (23-300); POTASSIUM 3.5 mmol/l (3.5-5.1); SGOT/AST 28 u/l (9-36); SODIUM 144 mmol/l (137-146)
[2022-10-25 12:53] LABS: ALBUMIN 3.9 g/dL (3.2-5.0); BILIRUBIN, TOTAL 0.7 mg/dL (0.0-1.4); TOTAL PROTEIN 6.5 g/dL (6.3-8.2)
[2022-10-25 14:43] LABS: URINE BILIRUBIN - DIPSTICK NEGATIVE (NEGATIVE); URINE BLOOD DIPSTICK TRACE-INTACT (NEGATIVE); URINE COLOR YELLOW; URINE GLUCOSE - DIPSTICK NEGATIVE (NEGATIVE); URINE KETONE NEGATIVE (NEGATIVE); URINE LEUK ESTERASE NEGATIVE (NEGATIVE); URINE PROTEIN - DIPSTICK NEGATIVE (NEG-TRACE); URINE UROBILINOGEN - DIPSTICK 0.2 E.U./dL (0.2)
[2022-10-25 14:45] LABS: URINE NITRITE - DIPSTICK POSITIVE (Negative)
[2022-10-25 15:03] LABS: URINE BACTERIA MODERATE hpf; URINE RBC 0-2 RBC/hpf (0-5); URINE SQUAMOUS EPITHELIAL CELL FEW EPI/hpf (0-FEW); URINE WBC 0-2 WBC/hpf (0-5)
[2022-10-25] MEDS ORDERED: KEFLEX500 MG PO (15:36)
== END 2022-10-25 16:21 | disposition home or self-care (01) ==
LOC: ED 11:40
PROVIDERS: Family Medicine
DX: N39.0 Urinary tract infection, site not specified (principal); B96.89 Other specified bacterial agents as the cause of diseases classified elsewhere; K59.00 Constipation, unspecified; I10 Essential (primary) hypertension; I48.91 Unspecified atrial fibrillation; Z86.718 Personal history of other venous thrombosis and embolism; Z87.11 Personal history of peptic ulcer disease; Z79.899 Other long term (current) drug therapy
CPT/HCPCS: Q9967; S0164

== ENCOUNTER 2023-07-25 06:59 | Day surgery (SDC) | payer MEDICARE, MEDICAID ==
[~2023-07-25] VITALS: Ht 175.3 cm; Wt 81.6 kg
[~2023-07-25 06:59] MED LIST changes: +IRON325 M1 PO
[2023-07-25 09:24] VITALS: BP 148/73
== END 2023-07-25 10:42 | disposition home or self-care (01) ==
LOC: ENDO 06:59 → ORM 08:00 → ENDO 10:42
PROVIDERS: ATTEND Surgery
PROC: 0DBM8ZX Excision of Descending Colon, Via Natural or Artificial Opening Endoscopic, Diagnostic (ICD-10-PCS; principal; 2023-07-25)
PROC: 0DBL8ZX Excision of Transverse Colon, Via Natural or Artificial Opening Endoscopic, Diagnostic (ICD-10-PCS; 2023-07-25)
PROC: 0DB78ZX Excision of Stomach, Pylorus, Via Natural or Artificial Opening Endoscopic, Diagnostic (ICD-10-PCS; 2023-07-25)
DX: Z12.11 Encounter for screening for malignant neoplasm of colon (principal); D12.3 Benign neoplasm of transverse colon; K63.5 Polyp of colon; K57.30 Diverticulosis of large intestine without perforation or abscess without bleeding; K64.8 Other hemorrhoids; K64.4 Residual hemorrhoidal skin tags; K29.70 Gastritis, unspecified, without bleeding; K44.9 Diaphragmatic hernia without obstruction or gangrene; I48.0 Paroxysmal atrial fibrillation; E03.9 Hypothyroidism, unspecified; E78.5 Hyperlipidemia, unspecified; Z85.038 Personal history of other malignant neoplasm of large intestine; Z90.49 Acquired absence of other specified parts of digestive tract; Z86.718 Personal history of other venous thrombosis and embolism; Z86.711 Personal history of pulmonary embolism; Z95.828 Presence of other vascular implants and grafts; Z87.11 Personal history of peptic ulcer disease
CPT/HCPCS: J0131

== ENCOUNTER 2023-12-13 17:57 | Inpatient (IN) | payer MEDICARE, MEDICAID ==
[2023-12-13] VITALS (11 sets, daily range): BP systolic 110–130; BP diastolic 58–86
[~2023-12-13] VITALS: Ht 175.3 cm; Wt 87.0 kg
[2023-12-13] MEDS ORDERED: SODIUM CHLORIDE 0.9% 1,000 ML IV ONE (18:55)
--- NOTE | 2023-12-13 19:10 | NUR ---
ASSUMED CASRE OF THIS PATIENT. A&O X3 . STATES LIQUID STOOLS STARTED YESTERDAY.
[2023-12-13 19:36] LABS: BASO% 0.1 % (0-3); HEMATOCRIT 35.6 % (37.0-47.0); IMMATURE GRANULOCYTES 0.3 % (0.0-5.0); LYMPH% 2.9 % (15-41); MEAN CELL VOLUME 98.9 fL CALC (80.0-100.0); MEAN CORPUSCULAR HGB 30.8 pG CALC (26.0-32.0); MEAN CORPUSCULAR HGB CONC 31.2 g/dL CAL (32.0-36.0); MONO% 5.5 % (2-13); NEUT# 16.81 thou/uL (2.00-7.15); NEUT% 91.2 % (42-76); RED BLOOD COUNT 3.6 mill/uL (4.20-5.60); RED CELL DISTRI WIDTH 13.6 % (11.5-15.5)
[2023-12-13 19:42] LABS: ALBUMIN 3.5 g/dL (3.2-5.0); ALKALINE PHOSPHATASE 126 u/l (38-126); ANION GAP 9 (6-22 (CALC)); BUN 22 mg/dL (8-23); BUN/CREATININE RATIO 25 (12-20 (CALC)); CARBON DIOXIDE 30 mmol/l (22-30); CHLORIDE 101 mmol/l (95-108); CREATININE 0.9 mg/dL (0.5-1.0); GFR FOR AFR.AMER. > 60 ML/MIN (>=60 (CALC)); GFR OTHER RACES 60 ML/MIN (>=60 (CALC)); LIPASE 15 u/l (23-300); POTASSIUM 2.8 mmol/l (3.5-5.1); SGOT/AST 47 u/l (9-36); SODIUM 137 mmol/l (137-146); TOTAL PROTEIN 6.8 g/dL (6.3-8.2)
[2023-12-13 19:44] LABS: HEMOGLOBIN 11.1 g/dl (12.0-16.0)
--- NOTE | 2023-12-13 23:06 | NUR ---
PATIENT S;LEEPING. NO DISTRESS. V/S STABLE. IVF INFUSING.
[2023-12-14] VITALS (33 sets, daily range): BP systolic 91–143; BP diastolic 50–121
[2023-12-14] MEDS ORDERED: POTASSIUM CHLORIDE 20 MEQ/PKT POWDER PO ONE (00:15)
[2023-12-14 00:24] LABS: URINE BLOOD DIPSTICK Moderate (NEGATIVE); URINE GLUCOSE - DIPSTICK Negative (NEGATIVE); URINE KETONE 15 mg/dL (NEGATIVE); URINE LEUK ESTERASE Negative (NEGATIVE); URINE NITRITE - DIPSTICK Negative (Negative); URINE PH 5.5 (4.5-8.0); URINE PROTEIN - DIPSTICK 100 mg/dL (NEG-TRACE); URINE SPECIFIC GRAVITY >=1.030; URINE UROBILINOGEN - DIPSTICK 0.2 E.U./dL (0.2)
[2023-12-14 00:46] LABS: URINE COLOR Yellow
--- NOTE | 2023-12-14 01:05 | NUR ---
RECIEVED REPORT FROM LORENZO MALLOY AT THIS TIME, PATIENT UPDATED ON CONTINUOUS PLAN OF CARE WITH NO FURTHER QUESTIONS OR CONCERNS, PUREWICK IN PLACE, NO BM NOTED, PATIENT VOICES NO NEED FOR BM AT THIS TIME. MD AWARE OF PATIENT STATUS, AWAITING ALL FURTHER ORDERS AT THIS TIME.
[2023-12-14 01:19] LABS: URINE BACTERIA MANY hpf; URINE MUCUS FEW hpf (NONE-FEW); URINE SQUAMOUS EPITHELIAL CELL FEW EPI/hpf (0-FEW); URINE WBC 20-50 WBC/hpf (0-5)
--- NOTE | 2023-12-14 02:30 | NUR ---
MD NOTIFIED OF INABILITY TO OBATIN SPECIMEN AT THIS TIME, MD GIVES ORDER TO AWAIT STOOL SPECIMEN FOR EVALUATION, PATIENT UPDATED ON CONTINUOUS PLAN OF CARE AT THIS TIME, BRIEF NOTED WITHOUT STOOL, PATIENT VOICES X2 DAYS OF NO CONTROL OR URINE/STOOL, PATIENT VOICES NO FURTHER QUESTIONS OR CONCERNS AT THIS TIME.
--- NOTE | 2023-12-14 02:35 | NUR ---
HOME INSTRUCTIONS PROVIDED, FOLLOW UP CARE DISCUSSED, FAMILY VERBALIZES UNDERSTANDING WITH NO FURTHER QUESTIONS OR CONCERNS AT THIS TIME, PATIENT ALERT AND ATTENTIVE, TEMP RECHECKED AT THIS TIME NOT BE AT 99.1 AXILLARY, FAMILY VOICES APPRECIATION OF CARE, AMB OUT OF DEPT WITH STEADY GAIT CARRIED BY FAMILY.
--- NOTE | 2023-12-14 03:40 | NUR ---
PATIENT MEDICATED PER ORDERS AT THIS TIME, PATIENT UPDATED ON CONTINUOUS PLAN OF CARE AT THIS TIME, AWAITING STOOL SPECIMEN AND ALL FURTHER RESULTS/ORDERS AT THIS TIME. PATIENT VOICES UNDERSTANDING WITH NO FURTHER QUESTIONS OR CONCERNS AT THIS TIME.
--- NOTE | 2023-12-14 04:30 | NUR ---
PATIENT UPDATED ON CONTINUOUS PLAN OF CARE, VOICES APPRECIATION OF CARE, AWAITING ALL FURTHER RESULTS/STOOL SPECIMEN AT THIS TIME, PATIENT VERBALIZES UNDERSTANDING WITH NO FURTHER QUESTIONS OR CONCERNS. WILL CONTINUE TO MONITOR.
[2023-12-14] MEDS ORDERED: SODIUM CHLORIDE 0.9% 1,000 ML IV PRN (05:30)
[2023-12-14] MEDS ORDERED: ACETAMINOPHEN 325 MG/TAB PO PRN (05:30)
[2023-12-14] MEDS ORDERED: MAGNESIUM HYDROXIDE 30 ML UDC PO PRN (05:30)
--- NOTE | 2023-12-14 05:30 | NUR ---
PATIENT ACCEPTED ADMISSION, PATIENT UPDATED ON CONTINUOUS PLAN OF CARE AT THIS TIME, AWAITING STOOL SPECIMEN, PATIENT VERBALIZES NO NEED TO GO AT THIS TIME, PATIENT IN SEMI-FOWLERS POSITION WITH CALL LIGHT IN REACH.
--- NOTE | 2023-12-14 06:20 | NUR ---
PATIENT REMOVED PUREWICK, PATIENT CHANGED DUE TO INCONTINENCE OF URINE, PURWICK REAPPLIED AT THIS TIME, PATIENT UPDATED ON CONTINUOUS PLAN OF CARE, AWAITING STOOL SPECIMEN AT THIS TIME, PATIENT VOICES APPRECIATION OF CARE WITH NO FURTHER QUESTIONS OR CONCERNS AT THIS TIME.
--- NOTE | 2023-12-14 06:40 | NUR ---
PATIENT TRANSFERRED TO #12 AT THIS TIME, UPDATED ON CONTINUOUS PLAN OF CARE, PATIENT VOICES UNDERSTANDING AT THIS TIME WITH NO FURTHER QUESTIONS OR CONCERNS AT THIS TIME, CALL LIGHT IN REACH AT THIS TIME, VSS AT THIS TIME.
--- NOTE | 2023-12-14 06:50 | NUR ---
REPORT GIVEN TO ERIKA RN AT THIS TIME, SBAR GIVEN, PATIENT UPDATED ON CONTINUOUS PLAN OF CARE WITH NO FURTHER QUESTIONS OR CONCERNS AT THIS TIME, PATIENT VOICES APPRECIATION OF CARE, CALL LIGHT IN REACH.
--- NOTE | 2023-12-14 08:23 | NUR ---
PATIENT SITTING UP IN BED EATING BREAKFAST. C/O RAHMAN PAIN OF A 3, MEDICATED ACCORDING TO EMAR. ALERT AND ORIENTED X 3. NON-PRODUCTIVE COUGH NOTED, STATES SHE HAS NOT HAD A COUGH AT HOME. BOWEL SOUNDS ACTIVE, PERIPHERAL PULSES STRONG. BREATHING EVEN AND UNLABORED ON ROOM AIR. SR ON THE MONITOR. NO APPARENT DISTRESS NOTED. SAFETY MEASURES IN PLACE INCLUDING BED IN LOW POSITION AND CALL LIGHT NEXT TO L HAND. WILL CONTINUE WITH PLAN OF CARE. PATIENT STATES SHE USSES WALKER AT HOME, LIVES ALONE WITH 13 CATS, AND IS INCONTINENT OF BOWEL AND BLADDER AT HOME.
[2023-12-14 08:57] LABS: HEMATOCRIT 34.5 % (37.0-47.0); HEMOGLOBIN 10.9 g/dl (12.0-16.0); MEAN CELL VOLUME 98.3 fL CALC (80.0-100.0); MEAN CORPUSCULAR HGB 31.1 pG CALC (26.0-32.0); MEAN CORPUSCULAR HGB CONC 31.6 g/dL CAL (32.0-36.0); RED BLOOD COUNT 3.51 mill/uL (4.20-5.60); RED CELL DISTRI WIDTH 13.6 % (11.5-15.5)
[2023-12-14] MEDS ORDERED: POTASSIUM CHLORIDE 20 MEQ/TAB PO SCH (09:00)
[2023-12-14] MEDS ORDERED: LACTATED RINGER'S 1,000 ML IV PRN (10:00)
[2023-12-14] MEDS ORDERED: AMIODARONE 200 MG/TAB PO SCH (11:00)
[2023-12-14] MEDS ORDERED: SPIRONOLACTONE 25 MG/TAB PO SCH (11:00)
[2023-12-14] MEDS ORDERED: APIXABAN BASE 5 MG TAB PO SCH (11:00)
[2023-12-14] MEDS ORDERED: OXYBUTYNIN 5 MG/TAB PO SCH (11:00)
--- NOTE | 2023-12-14 11:55 | NUR ---
PATIENT IN HIGH FOWL POSITION FOR LUNCH. DENIES PAIN. CONTROLLED AFIB ON THE MONITOR. NO APPARENT DISTRESS NOTED. SAFETY MEASURES IN PLACE. WILL CONTINUE WITH PLAN OF CARE.
[2023-12-14] MEDS ORDERED: LEVOTHYROXIN25 MC1 PO (13:10)
[2023-12-14] MEDS ORDERED: VITAMIN D1.25 MG PO (13:11)
[2023-12-14] MEDS ORDERED: OMEPRAZOLE DR40 MG PO (13:11)
--- NOTE | 2023-12-14 14:59 | NUR ---
report received from Landry iXong RN; pt to transfer to [id number]
--- NOTE | 2023-12-14 16:21 | NUR ---
PATIENT TAKEN TO [id number] WITH TELE.
--- NOTE | 2023-12-14 16:24 | NUR ---
female pt received to [facility] via bed accompanied by Landry Xiong RN in stable condition; bedside report received; assessment completed at this time; pt alert and oriented; denies pain; no n.v noted; resp even and unlabored; lungs clear; jr irreg; afib on monitor; abd soft/distended with bs present; brief intact; purewick intact to suction; #20 ems site flushed and patent to lac, ivf infusing without complication; no redness or edema noted at site; plan of care explained; bed alarm set for pt safety; call light within reach; will continue to monitor
[2023-12-14] MEDS ORDERED: ATORVASTATIN CALCIUM 20 MG/TAB PO SCH (21:00)
[2023-12-14] MEDS ORDERED: ENOXAPARIN SODIUM 40 MG/0.4 ML SYR SC SCH (21:00)
[2023-12-14] MEDS ORDERED: cefTRIAXone SODIUM 2 GM in SODIUM CHLORIDE 0.9% 100 ML IV SCH (21:00)
[2023-12-15 01:09] VITALS: BP 125/51
[2023-12-15 04:08] VITALS: BP 126/59
[2023-12-15 06:06] LABS: BASO% 0.1 % (0-3); HEMATOCRIT 32.9 % (37.0-47.0); HEMOGLOBIN 10.4 g/dl (12.0-16.0); IMMATURE GRANULOCYTES 0.5 % (0.0-5.0); LYMPH% 3.1 % (15-41); MEAN CELL VOLUME 98.8 fL CALC (80.0-100.0); MEAN CORPUSCULAR HGB 31.2 pG CALC (26.0-32.0); MEAN CORPUSCULAR HGB CONC 31.6 g/dL CAL (32.0-36.0); MONO% 5.5 % (2-13); NEUT# 15.28 thou/uL (2.00-7.15); NEUT% 90.8 % (42-76); RED BLOOD COUNT 3.33 mill/uL (4.20-5.60); RED CELL DISTRI WIDTH 13.6 % (11.5-15.5)
[2023-12-15 06:29] LABS: BUN 15 mg/dL (8-23); BUN/CREATININE RATIO 24 (12-20 (CALC)); CARBON DIOXIDE 26 mmol/l (22-30); CHLORIDE 104 mmol/l (95-108); CREATININE 0.6 mg/dL (0.5-1.0); GFR FOR AFR.AMER. > 60 ML/MIN (>=60 (CALC)); GFR OTHER RACES > 60 ML/MIN (>=60 (CALC)); MAGNESIUM 1.5 mg/dL (1.6-2.3); SODIUM 137 mmol/l (137-146)
[2023-12-15 06:31] LABS: ANION GAP 10 (6-22 (CALC)); POTASSIUM 3.4 mmol/l (3.5-5.1)
--- NOTE | 2023-12-15 07:00 | NUR ---
DR RENEE NOTIFIED OF PROCALCITONIN RESULT OF 4.34, NO FURTHER ORDERS AT THIS TIME.
[2023-12-15 07:24] VITALS: BP 118/70
--- NOTE | 2023-12-15 08:00 | NUR ---
PATIENT ALERT AND ORINTED X3, ROOM AIR, ALSEEP, IV SITE CLEAN AND INTACT, STATES THAT SHE HAVE A HEADACHE, BUT DENIED ANY OTHER COMPLAINTS OR PAINS, BREATHING IN UNLABORED AND VEVEN, PATEINT WAS QUESTIONED REGARDING BEING A DIABETIC AND PATIENT DENIED BEING ONE, MEDICATION AND PLAN OF CARE REVIEWED, BED IN LOWEST POSTION, CALL LIGHT WITHIN REACH, VEERBZLIZED UNDERSTANDINING ON HOW TO USE
[2023-12-15] MEDS ORDERED: MAGNESIUM SULFATE HEPTAHYDRATE 50 ML IV SCH (09:00)
[2023-12-15 09:42] LABS: ANION GAP 12 (6-22 (CALC)); BUN 15 mg/dL (8-23); BUN/CREATININE RATIO 21 (12-20 (CALC)); CARBON DIOXIDE 27 mmol/l (22-30); CHLORIDE 101 mmol/l (95-108); CREATININE 0.7 mg/dL (0.5-1.0); GFR FOR AFR.AMER. > 60 ML/MIN (>=60 (CALC)); GFR OTHER RACES > 60 ML/MIN (>=60 (CALC)); POTASSIUM 3.4 mmol/l (3.5-5.1); SODIUM 137 mmol/l (137-146)
[2023-12-15 10:32] VITALS: BP 115/62
--- NOTE | 2023-12-15 12:00 | NUR ---
PATIENT ALERT AND OREINTED X3, IN HIGH SEMI CA POSTION ALSEEP, ROOM AIR, BREATHING UNLABORED AND EVEN, DENIED ANY PAIN AT THE MOMENT, DENIED NEEDING ANYTHING AT THE MOMENT, PLAN OF CARE AND MEDICATION REVIEWED, IV SITE CLEAN AND INTACT RUNNING WITH LR AT 125 RATE, CALL LIGHT WITHIN REACH, VERBALIZED UNDERSTANDNING ON HOW TO USE, BED IN LOWEST POSTION, FREQUENT ROUNDING CONTINUE
--- NOTE | 2023-12-15 14:16 | NUR ---
PT TO XRAY VIA WHEELCHAIR
--- NOTE | 2023-12-15 14:26 | NUR ---
patient back from xray
[2023-12-15 16:09] VITALS: BP 113/64
--- NOTE | 2023-12-15 16:18 | NUR ---
PATIENT ALERT AND ORIENTED X3, IN BED ALSEEP , ROOM AIR, BREATHING UNLABORED AND EVEN, IV SITE CLEAN AND INTACT RUNNING WITH LR AT 125ML, PATIENT DENIED ANY PAIN AT THIS TIME, DENIED NEEDING ANYTHING, CALL LIGHT WITHIN REACH, MEDICATION REVIEWED, VERBALIZED UNDERSTANDING HOW TO USE, BED IN LOWEST POSTION SALOMON CONTINUE TO MONITOR
[2023-12-15] MEDS ORDERED: POTASSIUM CHLORIDE 20 MEQ/TAB PO ONE (16:30)
[2023-12-15 19:08] VITALS: BP 104/52
[2023-12-16] VITALS (8 sets, daily range): BP systolic 102–131; BP diastolic 52–71
[2023-12-16 06:32] LABS: BASO% 0.1 % (0-3); EOS% 0.3 % (0-8); HEMATOCRIT 31.7 % (37.0-47.0); HEMOGLOBIN 10.1 g/dl (12.0-16.0); IMMATURE GRANULOCYTES 0.5 % (0.0-5.0); LYMPH% 4.5 % (15-41); MEAN CELL VOLUME 97.2 fL CALC (80.0-100.0); MEAN CORPUSCULAR HGB CONC 31.9 g/dL CAL (32.0-36.0); MONO% 5.8 % (2-13); NEUT# 13.09 thou/uL (2.00-7.15); NEUT% 88.8 % (42-76); RED BLOOD COUNT 3.26 mill/uL (4.20-5.60); RED CELL DISTRI WIDTH 13.9 % (11.5-15.5)
[2023-12-16 06:48] LABS: ANION GAP 9 (6-22 (CALC)); BUN 15 mg/dL (8-23); BUN/CREATININE RATIO 22 (12-20 (CALC)); CARBON DIOXIDE 29 mmol/l (22-30); CHLORIDE 103 mmol/l (95-108); CREATININE 0.7 mg/dL (0.5-1.0); GFR FOR AFR.AMER. > 60 ML/MIN (>=60 (CALC)); GFR OTHER RACES > 60 ML/MIN (>=60 (CALC)); POTASSIUM 3.7 mmol/l (3.5-5.1); SODIUM 136 mmol/l (137-146)
--- NOTE | 2023-12-16 08:00 | NUR ---
SHIFT CHANGE REPORT, PT AWAKE ALERT AND ORIENTED RSTING IN BED, C/O BACK ACHE CAUSED BY UNCOMFORTABLE BED, IVF INFUSING, TELE MONITOR IN PLACE, CALL LAZO IN REACH AND BED LOCKED IN LOWEST POSITION. ASSISTED TO BR THEN BACK TO RECLINER WHERE SHE MORE COMFORTBLE, CALL LAZO IN REACH.
[2023-12-16] MEDS ORDERED: Meropenem 1 GM in SODIUM CHLORIDE 0.9% 100 ML IV SCH ×2 (09:00→17:15)
--- NOTE | 2023-12-16 10:15 | NUR ---
TRANNSPORTED OFF UNIT VIA W/C TO PROCEDURE, RETURNED AT CMPLETION OF TEST AND SETTLED IN RECLINER.
[2023-12-16] MEDS ORDERED: METOPROLOL TARTRATE 25 MG/TAB PO SCH (13:00)
--- NOTE | 2023-12-16 15:35 | NUR ---
DR KWAN CONSULTED AND DISCUSSED NEW ORDERS, PT STATED UNDERSTANDING AND ASKED QUESTIONS WHICH WERE ADDRESSED.
[2023-12-16] MEDS ORDERED: ERTAPENEM 1 GM in SODIUM CHLORIDE 0.9% 50 ML IV SCH (15:55)
[2023-12-17] MEDS ORDERED: Meropenem 1 GM in SODIUM CHLORIDE 0.9% 100 ML IV SCH (01:00)
[2023-12-17 05:23] LABS: BASO% 0.1 % (0-3); EOS% 0.3 % (0-8); HEMATOCRIT 32.4 % (37.0-47.0); LYMPH% 5.5 % (15-41); MEAN CELL VOLUME 98.8 fL CALC (80.0-100.0); MEAN CORPUSCULAR HGB 30.5 pG CALC (26.0-32.0); MEAN CORPUSCULAR HGB CONC 30.9 g/dL CAL (32.0-36.0); MONO% 9.9 % (2-13); NEUT# 9.62 thou/uL (2.00-7.15); NEUT% 83.2 % (42-76); RED BLOOD COUNT 3.28 mill/uL (4.20-5.60); RED CELL DISTRI WIDTH 14.1 % (11.5-15.5)
[2023-12-17 05:42] LABS: ANION GAP 8 (6-22 (CALC)); BUN 14 mg/dL (8-23); BUN/CREATININE RATIO 21 (12-20 (CALC)); CARBON DIOXIDE 31 mmol/l (22-30); CHLORIDE 101 mmol/l (95-108); CREATININE 0.7 mg/dL (0.5-1.0); GFR FOR AFR.AMER. > 60 ML/MIN (>=60 (CALC)); GFR OTHER RACES > 60 ML/MIN (>=60 (CALC)); POTASSIUM 3.9 mmol/l (3.5-5.1); SODIUM 136 mmol/l (137-146)
[2023-12-17 07:22] VITALS: BP 108/57
--- NOTE | 2023-12-17 08:00 | NUR ---
SPOKE WITH APRYL ALLEGRA RE: PICC LINE FOR PT AND ELOQUIS. STATED" NO NEED FOR THE PICC LINE AT THIS TIME , RECOMMENDATION OF 7 DAYS OF ABT."
--- NOTE | 2023-12-17 08:50 | NUR ---
ASSESSMENT IS COMPLETED: IV SITE IS FREE FROM REDNESS OR EDEMA HR IS REG,PULSES ARE STRONG X4,ABD IS SOFT WITH ACTIVE BS.BREATH SOUNDS ARE CLEAR, BILATERALLY. TELE MONITOR IN PLACE.
[2023-12-17 10:45] VITALS: BP 115/58
--- NOTE | 2023-12-17 12:00 | NUR ---
PT IS RELAXING IN BED WITH NO DISTRESS NOTED. IV SITE IS FREE FROM REDNESS OR EDEMA.
[2023-12-17] MEDS ORDERED: LOPRESSOR25 MG PO (14:16)
[2023-12-17] MEDS ORDERED: MEROPENEM1 GM IV (14:16)
[2023-12-17 15:04] VITALS: BP 108/67
--- NOTE | 2023-12-17 16:00 | NUR ---
PT'S IV SITE IS FLUSHED AND COVERED, WILL BE GOING TO [facility] .
--- NOTE | 2023-12-17 16:45 | NUR ---
TRANSPORT HERE TO TAKE PT TO [facility], ASSISTANCE WITH 3 STAFF, PT IS A LITTLE WEAK IN HER LEGS. GAVE REPORT TO STAFF AT REHAB
--- NOTE | 2023-12-17 16:53 | NUR ---
GAVE REPORT TO ANTONINA VENTURA AT [facility]
== END 2023-12-17 16:46 | DRG 872 ==
LOC: ED 17:57 → ED-I 12-14 03:30 → ED 12-14 05:30 → ED-I 12-14 05:31 → MS2 12-14 05:31
PROVIDERS: Emergency Medicine; ADMIT Student in an Organized Health Care Education/Training Program; ATTEND Student in an Organized Health Care Education/Training Program
DX: A41.9 Sepsis, unspecified organism (principal); N30.00 Acute cystitis without hematuria; Z16.12 Extended spectrum beta lactamase (ESBL) resistance; B96.20 Unspecified Escherichia coli [E. coli] as the cause of diseases classified elsewhere; I10 Essential (primary) hypertension; I48.0 Paroxysmal atrial fibrillation; E87.6 Hypokalemia; I25.10 Atherosclerotic heart disease of native coronary artery without angina pectoris; E03.9 Hypothyroidism, unspecified; E78.5 Hyperlipidemia, unspecified; Z86.711 Personal history of pulmonary embolism; Z85.038 Personal history of other malignant neoplasm of large intestine; Z90.49 Acquired absence of other specified parts of digestive tract; Z95.828 Presence of other vascular implants and grafts; Z86.718 Personal history of other venous thrombosis and embolism; Z87.440 Personal history of urinary (tract) infections
CPT/HCPCS: J3475

== ENCOUNTER 2024-04-10 13:14 | Inpatient (IN) | payer MEDICARE, MEDICAID ==
[2024-04-10] VITALS (40 sets, daily range): BP systolic 81–125; BP diastolic 47–86
[~2024-04-10] VITALS: Ht 175.3 cm; Wt 69.2 kg
[~2024-04-10 13:14] MED LIST changes: +LEVOTHYROXIN25 MC1 PO; +LOPRESSOR25 MG PO; +MEROPENEM1 GM IV; +OMEPRAZOLE DR40 MG PO; +VITAMIN D1.25 MG PO
[2024-04-10] MEDS ORDERED: SODIUM CHLORIDE 0.9% 1,000 ML IV ONE ×2 (13:20→14:20)
[2024-04-10 14:09] LABS: BASO% 0.2 % (0-3); EOS% 0.3 % (0-8); HEMATOCRIT 41.9 % (37.0-47.0); HEMOGLOBIN 12.8 g/dl (12.0-16.0); IMMATURE GRANULOCYTES 0.7 % (0.0-5.0); LYMPH% 5.8 % (15-41); MEAN CELL VOLUME 98.8 fL CALC (80.0-100.0); MEAN CORPUSCULAR HGB 30.2 pG CALC (26.0-32.0); MEAN CORPUSCULAR HGB CONC 30.5 g/dL CAL (32.0-36.0); MONO% 4.7 % (2-13); NEUT# 11.16 thou/uL (2.00-7.15); NEUT% 88.3 % (42-76); RED BLOOD COUNT 4.24 mill/uL (4.20-5.60); RED CELL DISTRI WIDTH 15.3 % (11.5-15.5)
[2024-04-10 14:14] LABS: ALBUMIN 3.2 g/dL (3.2-5.0); ALKALINE PHOSPHATASE 134 u/l (38-126); BILIRUBIN, TOTAL 0.7 mg/dL (0.02-1.3); BUN 15 mg/dL (8-23); BUN/CREATININE RATIO 17 (12-20 (CALC)); CHLORIDE 103 mmol/l (95-108); CREATININE 0.9 mg/dL (0.5-1.0); ESTIMATED GFR 64 ML/MIN (>=90 (CALC)); LIPASE 78 u/l (23-300); POTASSIUM 3.8 mmol/l (3.5-5.1); SODIUM 135 mmol/l (137-146)
[2024-04-10 14:16] LABS: ANION GAP 15 (6-22 (CALC)); CARBON DIOXIDE 21 mmol/l (22-30); SGOT/AST 145 u/l (9-36)
[2024-04-10] MEDS ORDERED: SODIUM CHLORIDE 0.9% 500 ML IV ONE ×2 (15:10→20:25)
[2024-04-10 16:02] LABS: URINE BILIRUBIN - DIPSTICK Negative (NEGATIVE); URINE BLOOD DIPSTICK Moderate (NEGATIVE); URINE GLUCOSE - DIPSTICK Negative (NEGATIVE); URINE KETONE Negative (NEGATIVE); URINE LEUK ESTERASE Negative (NEGATIVE); URINE PH 5.5 (4.5-8.0); URINE PROTEIN - DIPSTICK 100 mg/dL (NEG-TRACE); URINE UROBILINOGEN - DIPSTICK 0.2 E.U./dL (0.2)
[2024-04-10 16:15] LABS: URINE COLOR Yellow; URINE NITRITE - DIPSTICK Positive (Negative)
[2024-04-10 16:17] LABS: URINE BACTERIA MANY hpf; URINE WBC 0-2 WBC/hpf (0-5)
[2024-04-10] MEDS ORDERED: MAGNESIUM HYDROXIDE 30 ML UDC PO PRN (18:20)
[2024-04-10] MEDS ORDERED: SODIUM CHLORIDE 0.9% 1,000 ML IV PRN (18:20)
[2024-04-10] MEDS ORDERED: ACETAMINOPHEN 325 MG/TAB PO PRN (18:20)
[2024-04-10] MEDS ORDERED: MORPHINE SULFATE 4 MG/ML VIAL IV PRN (18:25)
[2024-04-10] MEDS ORDERED: ONDANSETRON HCl 4 MG/2 ML SDV IV PRN (18:25)
[2024-04-11] VITALS (20 sets, daily range): BP systolic 76–116; BP diastolic 38–64
[2024-04-11 05:37] LABS: BASO% 0.5 % (0-3); EOS% 0.8 % (0-8); HEMATOCRIT 35.5 % (37.0-47.0); HEMOGLOBIN 10.7 g/dl (12.0-16.0); IMMATURE GRANULOCYTES 0.3 % (0.0-5.0); LYMPH% 8.2 % (15-41); MEAN CELL VOLUME 98.6 fL CALC (80.0-100.0); MEAN CORPUSCULAR HGB 29.7 pG CALC (26.0-32.0); MEAN CORPUSCULAR HGB CONC 30.1 g/dL CAL (32.0-36.0); NEUT# 9.83 thou/uL (2.00-7.15); NEUT% 83.2 % (42-76); RED BLOOD COUNT 3.6 mill/uL (4.20-5.60); RED CELL DISTRI WIDTH 15.4 % (11.5-15.5)
[2024-04-11 05:54] LABS: CHOLESTEROL HDL RATIO 2.1 (<4.4 (CALC)); CREATININE 0.6 mg/dL (0.5-1.0); MAGNESIUM 1.8 mg/dL (1.6-2.3); POTASSIUM 3.5 mmol/l (3.5-5.1)
[2024-04-11] MEDS ORDERED: LEVOTHYROXINE SODIUM 25 MCG/TAB PO SCH (06:00)
[2024-04-11 06:32] LABS: ALBUMIN 2.1 g/dL (3.2-5.0); BILIRUBIN, TOTAL 0.3 mg/dL (0.02-1.3); TOTAL PROTEIN 4.7 g/dL (6.3-8.2)
[2024-04-11] MEDS ORDERED: DEXTROSE 250 ML IV ONE (06:35)
[2024-04-11] MEDS ORDERED: DEXTROSE 10% 500 ML IV PRN (06:40)
[2024-04-11] MEDS ORDERED: APIXABAN BASE 2.5 MG/TAB TAB PO SCH (09:00)
[2024-04-11] MEDS ORDERED: PANTOPRAZOLE SODIUM Sesquihydr 40 MG/TAB PO SCH (09:00)
[2024-04-11] MEDS ORDERED: cefTRIAXone SODIUM 2 GM in SODIUM CHLORIDE 0.9% 100 ML IV SCH (09:00)
[2024-04-11] MEDS ORDERED: AMIODARONE 200 MG/TAB PO SCH (09:00)
[2024-04-11] MEDS ORDERED: SODIUM CHLORIDE 0.9% 500 ML IV PRN (10:20)
[2024-04-11] MEDS ORDERED: MIDODRINE HCL 5 MG TAB PO SCH (10:30)
[2024-04-11] MEDS ORDERED: DEXTROSE 5% / 0.9% NACL 1,000 ML IV PRN (13:50)
[2024-04-12] VITALS (12 sets, daily range): BP systolic 75–112; BP diastolic 44–62
[2024-04-12 06:03] LABS: BASO% 0.3 % (0-3); EOS% 1.8 % (0-8); HEMATOCRIT 35.9 % (37.0-47.0); HEMOGLOBIN 10.9 g/dl (12.0-16.0); IMMATURE GRANULOCYTES 0.2 % (0.0-5.0); MEAN CELL VOLUME 99.4 fL CALC (80.0-100.0); MEAN CORPUSCULAR HGB 30.2 pG CALC (26.0-32.0); MEAN CORPUSCULAR HGB CONC 30.4 g/dL CAL (32.0-36.0); MONO% 8.5 % (2-13); NEUT# 7.88 thou/uL (2.00-7.15); NEUT% 81.2 % (42-76); RED BLOOD COUNT 3.61 mill/uL (4.20-5.60); RED CELL DISTRI WIDTH 15.7 % (11.5-15.5)
[2024-04-12 06:13] LABS: ALBUMIN 1.8 g/dL (3.2-5.0); BILIRUBIN, TOTAL 0.3 mg/dL (0.02-1.3); CREATININE 0.5 mg/dL (0.5-1.0); MAGNESIUM 1.7 mg/dL (1.6-2.3); POTASSIUM 3.4 mmol/l (3.5-5.1); TOTAL PROTEIN 4.4 g/dL (6.3-8.2)
[2024-04-12] MEDS ORDERED: Meropenem 1 GM in SODIUM CHLORIDE 0.9% 100 ML IV SCH (10:00)
[2024-04-12] MEDS ORDERED: ENOXAPARIN SODIUM 80 MG/0.8 ML SYR SC SCH ×2 (19:00→21:00)
[2024-04-13] VITALS (13 sets, daily range): BP systolic 78–107; BP diastolic 44–65
[2024-04-13 06:14] LABS: BASO% 0.6 % (0-3); EOS% 1.8 % (0-8); HEMATOCRIT 33.4 % (37.0-47.0); HEMOGLOBIN 10.2 g/dl (12.0-16.0); IMMATURE GRANULOCYTES 0.3 % (0.0-5.0); LYMPH% 9.6 % (15-41); MEAN CELL VOLUME 98.5 fL CALC (80.0-100.0); MEAN CORPUSCULAR HGB 30.1 pG CALC (26.0-32.0); MEAN CORPUSCULAR HGB CONC 30.5 g/dL CAL (32.0-36.0); NEUT# 6.82 thou/uL (2.00-7.15); NEUT% 78.7 % (42-76); RED BLOOD COUNT 3.39 mill/uL (4.20-5.60); RED CELL DISTRI WIDTH 15.5 % (11.5-15.5)
[2024-04-13 06:23] LABS: ALBUMIN 1.7 g/dL (3.2-5.0); BILIRUBIN, TOTAL 0.3 mg/dL (0.02-1.3); CREATININE 0.5 mg/dL (0.5-1.0); MAGNESIUM 1.6 mg/dL (1.6-2.3); TOTAL PROTEIN 4.1 g/dL (6.3-8.2)
[2024-04-13 06:41] LABS: POTASSIUM 2.6 mmol/l (3.5-5.1)
[2024-04-13] MEDS ORDERED: POTASSIUM CHLORIDE 20MEQ 100 ML IV SCH (07:30)
[2024-04-13] MEDS ORDERED: MAGNESIUM SULFATE HEPTAHYDRATE 50 ML IV SCH (08:00)
[2024-04-13] MEDS ORDERED: MEROPENEM1 GM IV (08:01)
[2024-04-13] MEDS ORDERED: DEXAMETHASONE SODIUM PHOSPHATE PF 10 MG/ML SDV IV SCH (09:00)
[2024-04-13] MEDS ORDERED: LOPERAMIDE HCL 2 MG CAP PO SCH (10:00)
[2024-04-13] MEDS ORDERED: LOPERAMIDE HCL 2 MG CAP PO PRN (21:00)
[2024-04-14] VITALS (13 sets, daily range): BP systolic 80–109; BP diastolic 43–66
[2024-04-14 05:50] LABS: BASO% 0.1 % (0-3); HEMATOCRIT 31.2 % (37.0-47.0); HEMOGLOBIN 9.6 g/dl (12.0-16.0); IMMATURE GRANULOCYTES 0.2 % (0.0-5.0); LYMPH% 7.5 % (15-41); MEAN CORPUSCULAR HGB 29.5 pG CALC (26.0-32.0); MEAN CORPUSCULAR HGB CONC 30.8 g/dL CAL (32.0-36.0); MONO% 7.6 % (2-13); NEUT# 8.63 thou/uL (2.00-7.15); NEUT% 84.6 % (42-76); RED BLOOD COUNT 3.25 mill/uL (4.20-5.60); RED CELL DISTRI WIDTH 15.5 % (11.5-15.5)
[2024-04-14 06:09] LABS: ALBUMIN 1.7 g/dL (3.2-5.0); BILIRUBIN, TOTAL 0.2 mg/dL (0.02-1.3); CREATININE 0.5 mg/dL (0.5-1.0); TOTAL PROTEIN 4.1 g/dL (6.3-8.2)
[2024-04-14 06:10] LABS: POTASSIUM 3.6 mmol/l (3.5-5.1)
[2024-04-15] VITALS: BP 95/57
[2024-04-15 02:00] VITALS: BP 95/61
[2024-04-15 04:00] VITALS: BP 86/53
[2024-04-15 05:24] LABS: HEMATOCRIT 33.8 % (37.0-47.0); HEMOGLOBIN 10.2 g/dl (12.0-16.0); MEAN CORPUSCULAR HGB 29.6 pG CALC (26.0-32.0); MEAN CORPUSCULAR HGB CONC 30.2 g/dL CAL (32.0-36.0); RED BLOOD COUNT 3.45 mill/uL (4.20-5.60); RED CELL DISTRI WIDTH 15.6 % (11.5-15.5)
[2024-04-15 05:37] LABS: ALBUMIN 1.7 g/dL (3.2-5.0); CREATININE 0.5 mg/dL (0.5-1.0); MAGNESIUM 1.7 mg/dL (1.6-2.3); POTASSIUM 3.4 mmol/l (3.5-5.1); TOTAL PROTEIN 4.2 g/dL (6.3-8.2)
[2024-04-15 05:41] LABS: BILIRUBIN, TOTAL 0.3 mg/dL (0.02-1.3)
[2024-04-15 06:00] VITALS: BP 97/48
[2024-04-15 08:00] VITALS: BP 97/63
[2024-04-15] MEDS ORDERED: POTASSIUM CHLORIDE 20 MEQ/TAB PO SCH (09:00)
[2024-04-15 10:00] VITALS: BP 99/61
[2024-04-15] MEDS ORDERED: MIDODRINE5 MG PO (12:35)
== END 2024-04-15 14:30 | DRG 872 ==
LOC: ED 13:14 → ED-I 13:48 → ED 13:48 → ED-I 17:45 → ED 19:07 → MS2 19:08 → ICU 21:55
PROVIDERS: Family Medicine; Internal Medicine; ADMIT Student in an Organized Health Care Education/Training Program; ATTEND Student in an Organized Health Care Education/Training Program
PROC: 02HV33Z Insertion of Infusion Device into Superior Vena Cava, Percutaneous Approach (ICD-10-PCS; principal; 2024-04-15)
PROC: B518ZZA Fluoroscopy of Superior Vena Cava, Guidance (ICD-10-PCS; 2024-04-15)
DX: A41.9 Sepsis, unspecified organism (principal); N39.0 Urinary tract infection, site not specified; C78.02 Secondary malignant neoplasm of left lung; C78.01 Secondary malignant neoplasm of right lung; C78.7 Secondary malignant neoplasm of liver and intrahepatic bile duct; G72.81 Critical illness myopathy; Z16.12 Extended spectrum beta lactamase (ESBL) resistance; C34.90 Malignant neoplasm of unspecified part of unspecified bronchus or lung; R65.20 Severe sepsis without septic shock; B96.20 Unspecified Escherichia coli [E. coli] as the cause of diseases classified elsewhere; I95.9 Hypotension, unspecified; E86.0 Dehydration; E03.9 Hypothyroidism, unspecified; I48.0 Paroxysmal atrial fibrillation; I25.10 Atherosclerotic heart disease of native coronary artery without angina pectoris; N83.201 Unspecified ovarian cyst, right side; E78.5 Hyperlipidemia, unspecified; Z85.038 Personal history of other malignant neoplasm of large intestine; Z86.718 Personal history of other venous thrombosis and embolism; Z86.711 Personal history of pulmonary embolism; Z79.01 Long term (current) use of anticoagulants; Z74.01 Bed confinement status; Z66 Do not resuscitate; Z20.822 Contact with and (suspected) exposure to COVID-19
CPT/HCPCS: J1100; J1650; J3475; Q9967

== ENCOUNTER 2024-05-20 19:54 | Inpatient (IN) | payer MEDICARE, MEDICAID ==
[2024-05-20] VITALS (11 sets, daily range): BP systolic 74–114; BP diastolic 53–86
[~2024-05-20] VITALS: Ht 175.3 cm; Wt 90.0 kg
[~2024-05-20 19:54] MED LIST changes: +MIDODRINE5 MG PO
--- NOTE | 2024-05-20 19:55 | NUR ---
PT TO RM #8 VIA EMS, TRIAGE COMPLETE, PT IS POOR HISTORIAN, PT HX IS NOTED WITH DEMENTIA AND GENERALIZED MUSCLE WEAKNESS, MD NOTIFIED OF PT STATUS, PT IS A&OX3 AT THIS TIME. NAD NOTED, PT NOTED WITH HYPOTENSION, MD AWARE.
[2024-05-20] MEDS ORDERED: SODIUM CHLORIDE 0.9% 1,000 ML BAG IV ONE (20:40)
[2024-05-20] MEDS ORDERED: DOXYCYCLINE HYCLATE 100 MG in SODIUM CHLORIDE 0.9% 100 ML IV ONE (20:45)
--- NOTE | 2024-05-20 21:00 | NUR ---
PT MEDICATED PER ORDERS AT THIS TIME, PT UPDATED ON CONTINUOUS PLAN OF CARE, PT NOTED TO CONTINUE TO REMAIN ALERT AND ORIENTED X3, PT VOICES APPRECIATION OF CARE, PT AWAITING ALL FURTHER RESULTS AT THIS TIME.
[2024-05-20 21:05] LABS: BASO% 0.1 % (0-3); HEMATOCRIT 37.1 % (37.0-47.0); HEMOGLOBIN 11.2 g/dl (12.0-16.0); IMMATURE GRANULOCYTES 0.6 % (0.0-5.0); LYMPH% 5.3 % (15-41); MEAN CELL VOLUME 95.1 fL CALC (80.0-100.0); MEAN CORPUSCULAR HGB 28.7 pG CALC (26.0-32.0); MEAN CORPUSCULAR HGB CONC 30.2 g/dL CAL (32.0-36.0); MONO% 2.7 % (2-13); NEUT# 12.14 thou/uL (2.00-7.15); NEUT% 91.3 % (42-76); RED BLOOD COUNT 3.9 mill/uL (4.20-5.60); RED CELL DISTRI WIDTH 18.2 % (11.5-15.5)
[2024-05-20 21:26] LABS: ACT PARTIAL THROMBO TIME 31.7 SECONDS (20.0-32.5)
[2024-05-20 21:27] LABS: CARBON DIOXIDE 25 mmol/l (22-30); CREATININE 0.6 mg/dL (0.5-1.0); ESTIMATED GFR 90 ML/MIN (>=90 (CALC)); SODIUM 135 mmol/l (137-146)
[2024-05-20 21:28] LABS: INTERNATIONAL NORMALIZED RATIO 1.6 RATIO (0.7-1.3); PROTHROMBIN TIME 15.3 SECONDS (9.0-12.5)
[2024-05-20 21:42] LABS: ALBUMIN 2.7 g/dL (3.2-5.0); ALKALINE PHOSPHATASE 164 u/l (38-126); ANION GAP 10 (6-22 (CALC)); BILIRUBIN, TOTAL 1.3 mg/dL (0.02-1.3); BUN 31 mg/dL (8-23); BUN/CREATININE RATIO 52 (12-20 (CALC)); CHLORIDE 104 mmol/l (95-108); POTASSIUM 4.3 mmol/l (3.5-5.1); SGOT/AST 84 u/l (9-36)
[2024-05-20] MEDS ORDERED: ACETAMINOPHEN 325 MG/TAB PO PRN (22:05)
[2024-05-20] MEDS ORDERED: SODIUM CHLORIDE 0.9% 1,000 ML IV PRN (22:05)
[2024-05-20] MEDS ORDERED: MAGNESIUM HYDROXIDE 30 ML UDC PO PRN (22:05)
--- NOTE | 2024-05-20 22:25 | NUR ---
PT MEDICATED PER ORDERS AT THIS TIME, ABX RUNNING, PT REMAINS A&OX3, STATES SHE FEELS MUCH BETTER, STATES NO COMPLAINTS, AWAITING ROOM ASSIGNMENT AT THIS TIME FOR ADMISSION FOR FURTHER CARE.
[2024-05-20] MEDS ORDERED: MEMANTINE HYDRO10 MG PO (23:27)
--- NOTE | 2024-05-20 23:30 | NUR ---
PT UPDATED ON CONTINUOUS POC, MED REC CMP, PT CONNECTED TO CONTINUOUS MONITORING, COMFORT MEASURES IN PLACE, LIGHTS DIMMED FOR COMFORT, CALL LIGHT IN REACH.
[2024-05-21] VITALS (13 sets, daily range): BP systolic 71–136; BP diastolic 47–85
--- NOTE | 2024-05-21 00:40 | NUR ---
REPORT CALLED TO LORENZO WOODS ON [facility] AT THIS TIME.
--- NOTE | 2024-05-21 01:10 | NUR ---
PT COMFORT MEASURE PROVIDED, UPDATED ON CONTINUOUS POC, NAD NOTED, PT IVF RUNNING, WILL CONTINUE TO MONITOR, AWAITING TELE BATTERY FOR TRANSPORT TO [facility] AT THIS TIME.
--- NOTE | 2024-05-21 03:05 | NUR ---
PT TRANSPORTED TO [facility] AT THIS TIME, TRANSFERRED TO [facility] STRETCHER, NURSE/AUTOMOTIVE SALES EXECUTIVE NOTIFIED OF PT, AUTOMOTIVE SALES EXECUTIVE AT BEDSIDE.
--- NOTE | 2024-05-21 06:40 | NUR ---
patient vital signs ; t-96.0 p-118 resp-18 b/p-101/65 o2-96
--- NOTE | 2024-05-21 08:20 | NUR ---
PT ADMITTED TO [facility] AT 0315 VIA STRETCHER BY ER STAFF. ALERT, AWAKE, AND APPROPRIATE. TELEMETRY #24, INITIATED AIRBONE/DROPLET/CONTACT PRECAUTIONS. COVID POSITIVE. O2 AT 2L VIA NC CONTINUOUSLY. IV TO LAC WITH SALINE AT 100 ML/HR. BUTTOCKS/REDNESS/DENUDED. ENCOURAGE TO CALL FOR ASSISTANCE WHEN NEEDED. SAFETY MEASURES IN PLACE.
--- NOTE | 2024-05-21 08:24 | NUR ---
PT IS ALERT TO SELF, AND YEAR, NOT PLACE OR MONTH. RESPIRATIONS ARE EVENA AND UNLABORED AT THIS TIME WITH A THICK SOUNDING NON PRODUCTIVE COUGH, LUNGS ARE CLEAR, BOWEL SOUNDS ARE ACTIVE, PEDAL PULSES ARE PALPABLE TO TOUCH, LEFT ANKLE WITH TRACE PITTING EDEMA. PT DENIES P[AIN AT THIS TIME.
[2024-05-21] MEDS ORDERED: DEXAMETHASONE 2 MG/TAB TAB PO SCH (09:00)
[2024-05-21] MEDS ORDERED: DOXYCYCLINE HYCLATE 100 MG in SODIUM CHLORIDE 0.9% 100 ML IV SCH (10:00)
--- NOTE | 2024-05-21 10:38 | NUR ---
PT RESTING IN BED COMFORTABLY, DENIES ANY PAIN OR DISCOMFORT AT THIS TIME.
[2024-05-21] MEDS ORDERED: FERROUS SULFAT325 MG PO (12:27)
[2024-05-21] MEDS ORDERED: TRAMADOL HCL50 MG PO (12:31)
[2024-05-21] MEDS ORDERED: LOPRESSOR 550 MG/TAB PO (14:46)
[2024-05-21] MEDS ORDERED: METOPROLOL TARTRATE 50 MG/TAB PO SCH (15:00)
[2024-05-21] MEDS ORDERED: MIDODRINE HCL 5 MG TAB PO SCH (15:00)
--- NOTE | 2024-05-21 16:33 | NUR ---
PT SPIT PILL OUT AFTER PUTTING IT IN HER MOUTH. WHEN ASKED WHY PT REPLIED "ISNT THAT WHAT YOU WATED ME TO DO" EPLAINED TO PT THAT HER MEDICATION WILL ONLY WORK IF SHE SWALLOWS IT. PROCEED TO WATCH PT SWALLOW HER PILLS, PT APPEARS TO TAKE SOME TIME WITH SWALLOWING. ASKED PT IF SHE EVER CHOKES ON HER FOOD OR DRINKS. PT REPLIED "SOMETIMES"
--- NOTE | 2024-05-21 20:15 | NUR ---
PT RESTING NO DISTRESS NOTED ASSESSMENT. IV SITE ON LEFT ARM WAS INFILTRATED SO A NEW ONE WAS PLACED ON RAC 22G. LEFT ARM WAS ELEVATED TO HELP WITH THE SWELLING PT REPORTS NO PAIN ON THAT ARM. BP SLIGHT LOW NURSE RETOOK STILL LOW BUT WNL. PT ON NC 2L LUNGS SOUND RHONDI BUT NO LABORED BREATHING. CALL LIGHT WITHIN REACH. PLAN OF CARE ONGOING.
[2024-05-21] MEDS ORDERED: APIXABAN BASE 5 MG TAB PO SCH (21:00)
--- NOTE | 2024-05-22 02:03 | NUR ---
PT RESTING NO DISTRESS NOTED ON EXAM. CALL LIGHT WITHIN REACH. IV SITE CHECKED WORKING PROPERLY. BED ALARM ON. PLAN OF CARE ONGOING.
[2024-05-22 04:52] VITALS: BP 96/72
[2024-05-22 05:03] LABS: BASO% 0.1 % (0-3); HEMATOCRIT 34.1 % (37.0-47.0); HEMOGLOBIN 9.6 g/dl (12.0-16.0); IMMATURE GRANULOCYTES 0.9 % (0.0-5.0); MEAN CORPUSCULAR HGB 28.7 pG CALC (26.0-32.0); MEAN CORPUSCULAR HGB CONC 28.2 g/dL CAL (32.0-36.0); MONO% 5.5 % (2-13); NEUT# 10.16 thou/uL (2.00-7.15); NEUT% 86.5 % (42-76); RED BLOOD COUNT 3.35 mill/uL (4.20-5.60); RED CELL DISTRI WIDTH 18.3 % (11.5-15.5)
[2024-05-22 05:05] LABS: MEAN CELL VOLUME 101.8 fL CALC (80.0-100.0)
[2024-05-22 05:35] LABS: BILIRUBIN, TOTAL 0.8 mg/dL (0.02-1.3); MAGNESIUM 1.8 mg/dL (1.6-2.3); POTASSIUM 3.8 mmol/l (3.5-5.1)
[2024-05-22 05:39] LABS: CREATININE 0.6 mg/dL (0.5-1.0)
[2024-05-22 05:48] LABS: ALBUMIN 1.9 g/dL (3.2-5.0); TOTAL PROTEIN 4.7 g/dL (6.3-8.2)
[2024-05-22] MEDS ORDERED: LEVOTHYROXINE SODIUM 25 MCG/TAB PO SCH (06:00)
--- NOTE | 2024-05-22 06:39 | NUR ---
PT RESTING NO DISTRESS NOTED ON EXAM. CALL LIGHT WITHIN REACH. BED ALARM ON. PLAN OF CARE ONGOING.
[2024-05-22 06:56] VITALS: BP 106/70
--- NOTE | 2024-05-22 08:10 | NUR ---
SPEECH THERAPY IN ROOM WITH PT DOING EVAL.
--- NOTE | 2024-05-22 08:19 | NUR ---
PATIENT SITTING UP IN BED EATING BREAKFAST. PATIENT A&O, ON NC 2L. TELE INTACT. PUREWICK IN PLACE. IV IN RAC INFUSING NS @100MLS. IV SITE CLEAN AND INTACT. DENIES ANY N/D/V. DENIES ANY PAIN. BED IN LOWEST POSITION. CALL LIGHT WITHIN REACH.
--- NOTE | 2024-05-22 08:51 | NUR ---
IN ROOM WITH PT DISCUSSING PLAN OF CARE.
[2024-05-22] MEDS ORDERED: AMIODARONE 200 MG/TAB PO SCH (09:00)
[2024-05-22 10:33] VITALS: BP 90/46
--- NOTE | 2024-05-22 12:00 | NUR ---
PATIENT SITTING UPRIGHT IN BED WATCHING TV AND EATING LUNCH. BREATHING EVEN AND UNLABORED. PT ON NC @2L. TELE INTACT. DRY NONPRODUCTIVE COUGH NOTED. PUREWICK INTACT. IV IN RAC INFUSING NS @100MLS. IV SITE CLEAN AND INTACT. DENIES ANY N/D/V. DENIES ANY PAIN. BED IN LOWEST POSITION. CALL LIGHT WITHIN REACH. NO NEEDS AT THIS TIME.
--- NOTE | 2024-05-22 16:00 | NUR ---
PATIENT LYING SEMI-CA IN BED WITH EYES CLOSED. BREATHING EVEN AND UNLABORED ON NC @2L. TELE INTACT. IV IN RAC INFUSING NS @100MLS; SITE CLEAN AND INTACT. PUREWICK STILL IN PLACE. NO SIGNS OF DISCOMFORT OR DISTRESS NOTED AT THIS TIME. BED IN LOWEST POSITION. CALL LIGHT WITHIN REACH.
[2024-05-22 17:02] VITALS: BP 154/131
[2024-05-22 19:20] VITALS: BP 92/47
[2024-05-22 19:31] VITALS: BP 92/47
--- NOTE | 2024-05-22 20:00 | NUR ---
PT RESTING SLIGHTLY ANXIOUS STATING SHE IS LONELY WANTING TO GO BACK HOME TO THE REHAB. VS WNL ON NC 2L BP SLIGHTLY LOW LUNGS CLEAR. PT REPOSITIONED HAS A WOUND ON HER BUTTOM PIC ON CHART. PT STATED SHE IS HAPPY THAT SHE HAD A BM TODAY AND THAT OVERALL IT WAS A GOOD DAY. ASSESSMENT DONE. CALL LIGHT WITHIN REACH. PLAN OF CARE ONGOING.
--- NOTE | 2024-05-22 23:10 | NUR ---
PT HAD A BM MODERATE IN SIZE DARK BROWN PASTY. TYLER CARE DONE WITH CLEAN BRIEF AND REPOSITIONED. ORAL FLUIDS PROVIDED. CALL LIGHT WITHIN REACH. PLAN OF CARE ONGOING.
[2024-05-23] VITALS (8 sets, daily range): BP systolic 78–98; BP diastolic 45–60
--- NOTE | 2024-05-23 01:26 | NUR ---
PT RESTING NO DISTRESS NOTED ON EXAM. CALL LIGHT WITHIN REACH. PLAN OF CARE ONGOING.
--- NOTE | 2024-05-23 04:22 | NUR ---
PT RESTING NO DISTRESS NOTED ON EXAM. NO PAIN REPORTED AT THIS TIME. CALL LIGHT WITHIN REACH. PLAN OF CARE ONGOING.
[2024-05-23 06:06] LABS: BASO% 0.1 % (0-3); HEMOGLOBIN 11.2 g/dl (12.0-16.0); IMMATURE GRANULOCYTES 1.1 % (0.0-5.0); MEAN CELL VOLUME 95.9 fL CALC (80.0-100.0); MEAN CORPUSCULAR HGB CONC 30.3 g/dL CAL (32.0-36.0); MONO% 7.5 % (2-13); NEUT# 11.33 thou/uL (2.00-7.15); NEUT% 85.3 % (42-76); RED BLOOD COUNT 3.86 mill/uL (4.20-5.60); RED CELL DISTRI WIDTH 18.3 % (11.5-15.5)
[2024-05-23 06:39] LABS: ALBUMIN 2.1 g/dL (3.2-5.0); BILIRUBIN, TOTAL 0.9 mg/dL (0.02-1.3); CREATININE 0.7 mg/dL (0.5-1.0); MAGNESIUM 1.7 mg/dL (1.6-2.3); POTASSIUM 3.3 mmol/l (3.5-5.1)
--- NOTE | 2024-05-23 08:00 | NUR ---
RECEIVED REPORT FROM NIGHTSHIFT NURSE. PT NOTED SITTING UP FOWLERS IN BED EATING BREAKFAST. PT IS A/OX3, NASAL CANNULA IN PLACE ON 2L O2, DENIES ANY PAIN AT THIS TIME. PT HAS MINIMAL MOVEMENTS TO BLE, PT STATES IS HER BASELINE. RANCH HELPER ASSISSTED COFFEE HOST WITH BED BATH AND CHANGE, EXCORIATION NOTED TO BUTTOCKS. BARRIER CREAM APPLIED AND DSG PLACE. NEW PUREWICK IN PLACE, DARK BERYL URINE OUTPUT NOTED IN CANNISTER. PT ON TELE MONITOR. ASSESSMENT COMPELTED (SEE NURSING INTERVENTION) IV SITE APPEARS HEALTHY AND INTACT WITH FLUIDS RUNNING PER EMAR. EDUCATED PT ON PLAN OF CARE AND MED SCHEDULE. CALL LIGHT WITHIN REACH AND SAFETY PRECAUTIONS IN PLACE.
[2024-05-23] MEDS ORDERED: DEXAMETHASONE 2 MG/TAB TAB PO SCH (09:00)
[2024-05-23] MEDS ORDERED: ERTAPENEM1 G1 IV (10:27)
[2024-05-23] MEDS ORDERED: Meropenem 1 GM in SODIUM CHLORIDE 0.9% 100 ML IV SCH (11:00)
--- NOTE | 2024-05-23 11:53 | NUR ---
PT SITTING UP FOWLERS IN BED, EATING LUNCH AT THIS TIME. DENIES ANY PAIN. NO S/S OF DISTRESS. PHYSICIAN INFORMED OF PT LOW BP, NO NEW ORDERS AT THIS TIME. CALL LIGHT WITHIN REACH AND SAFETY PRECAUTIONS IN PLACE.
[2024-05-23] MEDS ORDERED: NYSTATIN (Mouth-Throat) 500 MU/UDC UDC PO SCH (13:00)
--- NOTE | 2024-05-23 16:37 | NUR ---
FERMENTING CELLARS SUPERVISOR ASSISTED EQUIPMENT OPERATING ENGINEER WITH CHANGING PT AND REPOSITIONING. PT TOLERATED WELL. PT DENIES ANY PAIN AT THIS TIME, NO S/S OF DISTRESS. CALL LIGHT WITHIN REACH AND SAFETY PRECAUTIONS IN PLACE.
--- NOTE | 2024-05-23 21:00 | NUR ---
PT RESTING NO DISTRESS NOTED ON ASSESSMENT. BP STILL SOFT OTHER VS WNL ON NC 2L. IV SITE FLUSHED WORKING PROPERLY. BLE +1 EDEMA. PT REPOSITIONED. CALL LIGHT WITHIN REACH. PLAN OF CARE ONGOING.
--- NOTE | 2024-05-24 | NUR ---
PT RESTING NO DISTRESS NOTED ON EXAM. IV SITE CHECKED WORKING PROPERLY. CALL LIGHT WITHIN REACH. PLAN OF CARE ONGOING.
[2024-05-24 04:22] VITALS: BP 99/36
--- NOTE | 2024-05-24 05:08 | NUR ---
PT HAD A SMALL BM YELLOW. [employer] NOTICIED THAT SHE HAD NOT HAD ANY URINE OUTPUT ALL NIGHT AND INFORM THE NURSE. NURSE BLADDER SCAN THE PT WHICH SHOW >297. WHEN THE NURSE WAS BLADDER SCANNING THE PT SHE COMPLAINED OF ABD PAIN WHEN PRESSING DOWN AND ABD WAS SLIGHTLY DISTENDED. PT HAS BEEN RECEIVING IV FLUIDS AT 100ML/HR ALL NIGHT. NURSE INFORMED CORPORATE BUYER WHICH SHE ADVISE NURSE TO CALL THE PROCESS CONTROL TECH PROVIDOR. PROCESS CONTROL TECH PROVIDER GAVE VERBAL ORDER TO PLACE OROZCO CATHETER. A 16 FR OROZCO CATHETER WAS PLACED. PT'S PERIAREA HAS IRRITATION AND SLIGHTLY BLEEDING FROM HAVING LOOSE STOOLS BARRIER CREAM APPLIED AND NEW BUTTOM MEPILEX DRESSING APPLIED. CALL LIGHT WITHIN REACH. PLAN OF CARE ONGOING.
[2024-05-24 05:28] LABS: HEMATOCRIT 36.3 % (37.0-47.0); HEMOGLOBIN 10.5 g/dl (12.0-16.0); MEAN CELL VOLUME 98.9 fL CALC (80.0-100.0); MEAN CORPUSCULAR HGB 28.6 pG CALC (26.0-32.0); MEAN CORPUSCULAR HGB CONC 28.9 g/dL CAL (32.0-36.0); RED BLOOD COUNT 3.67 mill/uL (4.20-5.60); RED CELL DISTRI WIDTH 18.4 % (11.5-15.5)
[2024-05-24 05:45] LABS: BILIRUBIN, TOTAL 1.1 mg/dL (0.02-1.3); CREATININE 0.6 mg/dL (0.5-1.0); POTASSIUM 3.5 mmol/l (3.5-5.1); TOTAL PROTEIN 4.7 g/dL (6.3-8.2)
--- NOTE | 2024-05-24 06:57 | NUR ---
EMPTIED OROZCO CATHETER 150ML BERYL IN COLOR.
[2024-05-24 07:27] VITALS: BP 90/50
--- NOTE | 2024-05-24 08:23 | NUR ---
RECEIVED REPORT FROM NIGHTSHIFT NURSE ROXANE VENTURA. PT NOTED SITTNING UP FOWLERS IN BED, EATING BREAKFAST AT THIS TIME. NASAL CANNULA IN PLACE ON 2L O2. PT IS A/OX2 TO SELF AND PLACE, DENIES ANY PAIN AT THIS TIME. ASSESSMENT COMPELTED, PT BLE APPEARS SLIGHTLY MORE SWOLLEN THEN YESTERDAY, SKIN PRESENTS SHINY AND TIGHT. OROZCO CATHETER NOTED WITH MINIMAL URINE OUTPUT AT THIS TIME. IV SITE APPEARS HEALTHY AND INTACT. PT HAS NON PRODUCTIVE, WET SOUNDING COUGH PRESENT. EDUCATED PT ON PLAN OF CARE, REPOSITIONING, AND MED SCHEDULE TODAY. NO S/S OF DISTRESS. CALL LIGHT WITHIN REACH AND SAFETY PRECAUTIONS IN PLACE.
[2024-05-24 10:33] VITALS: BP 91/42
--- NOTE | 2024-05-24 12:00 | NUR ---
TICKET SALES SUPERVISOR ASSISTED CLAY CASTER WITH CLEANING AND CHANGING PT. NEW DSG PLACED ON PT COCCYX AREA FOR EXCORIATION, WOUND APPEARS LESS INFLAMED AND IRRITATED TODAY. REPOSITIONED PT IN BED TO LT SIDE AND SAT FOWLERS TO EAT LUNCH. NASAL CANNULA IN PLACE. NO S/S OF DISTRESS. CALL LIGHT WITHIN REACH AND SAFETY PRECAUTIONS IN PLACE.
[2024-05-24 14:26] VITALS: BP 89/65
--- NOTE | 2024-05-24 15:11 | NUR ---
ENTERED PT ROOM TO ADMINISTER MEDICATION PER EMAR, PT NOTED LAYING IN BED SEMI FOWLERS, NASAL CANNULA IN PLACE AND EYES CLOSED. PT WOULD NOT AROUSE TO SPEECH OR TAPPING ON SHOULDER. PT DID FINALLY AROUSE TO HARD STERNUM RUB AFTER 1 MINUTE, WAKING UP STATING "YOU'RE GOING TO [place]" INFORMED PT OF BEING UNAROUSABLE AND PT STATED "GOOD I WAS READY TO GO"
--- NOTE | 2024-05-24 17:09 | NUR ---
PT REPOSITIONED IN BED HIGH FOWLERS, DINNER ON BEDSIDE TABLE INFRONT OF PT. ENCOURAGED PT TO EAT. PT DENIES ANY PAIN AT THIS TIME. NO S/S OF DISTRESS. NASAL CANNULA IN PLACE. CALL LIGHT WITHIN REACH AND SAFETY PRECAUTIONS IN PLACE.
[2024-05-24 19:00] VITALS: BP 86/47
[2024-05-24 19:11] VITALS: BP 86/47
[2024-05-25] VITALS (10 sets, daily range): BP systolic 78–102; BP diastolic 45–59
--- NOTE | 2024-05-25 03:38 | NUR ---
PT RESTING WITHE EYES CLOSED BREATHING IS EVEN AND UNLABORED. NO S/S OF DISTRESS NOTED. PT WAKE UP WHEN ENTERING THE ROOM, DENIES PAIN OR DICOMFOERT AT THSI TIME, NO NEEDS VOICED. CALL LIGHT IN REACH AND BED IN LOWSET POSIION.
--- NOTE | 2024-05-25 07:35 | NUR ---
PATIENT RESTING IN BED WITH EYES CLOSED. PATIENT A&OX2. BREATHING EVEN AND UNLABORED ON 4L OF OXYGEN VIA NC. LUNG SOUNDS CLEAR. PT BLE APPEAR SWOLLEN. IV IN LAC INFUSING 10MLS OF NS TO KVO. TELE INTACT. OROZCO INTACT. PT DENIES ANY N/D/V AT THIS TIME. DENIES ANY PAIN. BED IN LOWEST POSITION. CALL LIGHT WITHIN REACH; PT VERBALIZED UNDERSTANDING OF USE. NO FURTHER NEEDS AT THIS TIME.
[2024-05-25] MEDS ORDERED: MORPHINE SULFATE 4 MG/ML VIAL IV PRN (09:40)
[2024-05-25] MEDS ORDERED: DIATRIZOATE MEGLUMINE & SODIUM 30 ML/BTL BTL PO SCH (10:10)
[2024-05-25 10:12] LABS: HEMATOCRIT 40.1 % (37.0-47.0); HEMOGLOBIN 11.4 g/dl (12.0-16.0); IMMATURE GRANULOCYTES 1.6 % (0.0-5.0); LYMPH% 8.2 % (15-41); MEAN CELL VOLUME 99.3 fL CALC (80.0-100.0); MEAN CORPUSCULAR HGB 28.2 pG CALC (26.0-32.0); MEAN CORPUSCULAR HGB CONC 28.4 g/dL CAL (32.0-36.0); MONO% 5.6 % (2-13); NEUT# 12.45 thou/uL (2.00-7.15); NEUT% 84.6 % (42-76); RED BLOOD COUNT 4.04 mill/uL (4.20-5.60)
[2024-05-25 10:31] LABS: ALBUMIN 2.4 g/dL (3.2-5.0); CREATININE 0.7 mg/dL (0.5-1.0); POTASSIUM 4.1 mmol/l (3.5-5.1); TOTAL PROTEIN 5.3 g/dL (6.3-8.2)
[2024-05-25 10:36] LABS: BILIRUBIN, TOTAL 1.6 mg/dL (0.02-1.3)
--- NOTE | 2024-05-25 12:10 | NUR ---
PATIENT LYING SEMI-FOWLERS IN BED; RESTING WITH EYES CLOSED. BREATHING EVEN AND UNLABORED ON 4L OF O2 VIA NC. TELE INTACT. IV IN LAC INFUSING NS @10MLS. OROZCO INTACT. PT DENIES ANY N/D/V/ AT THIS TIME. BED IN LOWEST POSITION. CALL LIGHT WITHIN REACH;VERBALIZED UNDERSTANDING OF USE.
--- NOTE | 2024-05-25 15:24 | NUR ---
patient martinez has been emply through outshift, there is no kiks or blockage that was seen, tool and cutter grinder stated she have no emplied martinez due to no output,bladder scanned patient and scan showed 250ml and was charted; called provider and informed him of situtaion, provider order her fluids to be moved from KVO to 100ml/hr as well as irrgation of the martinez, completed the irrigation with no issues, patient tolerated with no issues, rewritten new order for fluids to be running @100;
--- NOTE | 2024-05-25 16:00 | NUR ---
PATIENT RESTING IN BED WITH EYES CLOSED. BREATHING EVEN AND UNLABORED ON 4L OF O2 VIA NC. IV IN LAC INFUSING NS @100MLS. IV SITE CLEAN AND INTACT. TELE INTACT. OROZCO IN PLACE AND OUTPUTING YELLOW,CLEAR URINE. PT DENIES ANY N/D/V AT THIS TIME. BED IN LOWEST POSITION. CALL LIGHT WITHIN REACH; VERBALIZED UNDERSTANDING OF USE.
--- NOTE | 2024-05-25 20:01 | NUR ---
BEDSIDE SHIFT REPORT COMPLETED. RESP EVEN AND UNLABORED. ALERT WITH CONFUSION. BED ALARM ON FOR SAFETY. CALL LIGHT IN REACH.
--- NOTE | 2024-05-26 | NUR ---
IV IN LEFT AC LEAKING. SITE REMOVED. 22G INSERTED INTO LEFT HAND. GOOD BLOOD RETURN, FLUSHES WELL. TOLERATED PROCEDURE WELL. YELLOW URINE DRAINING INTO COLLECTION BAG. ABDOMEN NONDISTENDED. GOOD RELIEF FROM PRN MORPHINE GIVEN AT BEDTIME FOR GENERALIZED PAIN. TURNED AND REPOSITIONED.
[2024-05-26 00:48] VITALS: BP 89/49
[2024-05-26 01:00] VITALS: BP 89/49
[2024-05-26 04:00] VITALS: BP 98/45
[2024-05-26 04:39] VITALS: BP 98/45
--- NOTE | 2024-05-26 07:10 | NUR ---
RESIING IN BED, ALERT ORIENTED X4. RESP EVEN AND UNLABORED. DENIES PAIN OR DISCOMFORT.
[2024-05-26 07:12] VITALS: BP 91/50
--- NOTE | 2024-05-26 08:02 | NUR ---
Patient resting in bed with eyes closed. Breathing even and unlabored on 4L of O2 via NC. IV in Lft hand infusing NS @100mls. IV in LAC SL; both sites clean and intact. Assessment completed. Denies any N/D/V at this time. Denies any pain. Couch intact and outputing urine. Tele intact. MELINDA hose stockings on BLE. Encouraged pt to eat breakfast; Pt refused. Bed in lowest position. Call light within reach; verbalized understanding of use.
[2024-05-26 08:03] LABS: HEMATOCRIT 40.9 % (37.0-47.0); HEMOGLOBIN 11.5 g/dl (12.0-16.0); MEAN CELL VOLUME 101.5 fL CALC (80.0-100.0); MEAN CORPUSCULAR HGB 28.5 pG CALC (26.0-32.0); MEAN CORPUSCULAR HGB CONC 28.1 g/dL CAL (32.0-36.0); RED BLOOD COUNT 4.03 mill/uL (4.20-5.60); RED CELL DISTRI WIDTH 19.3 % (11.5-15.5)
[2024-05-26 08:18] LABS: ALBUMIN 2.1 g/dL (3.2-5.0); BILIRUBIN, TOTAL 1.6 mg/dL (0.02-1.3); CREATININE 0.7 mg/dL (0.5-1.0); MAGNESIUM 1.7 mg/dL (1.6-2.3); POTASSIUM 4.1 mmol/l (3.5-5.1); TOTAL PROTEIN 5.1 g/dL (6.3-8.2)
[2024-05-26 10:57] VITALS: BP 93/60
--- NOTE | 2024-05-26 12:00 | NUR ---
Patient resting in bed with eyes closed. Breathing even and unlabored on 4L of O2 via NC. Encouraged pt to try and eat lunch; patient refused food but accepted liquids. Tele intact. Couch still place. IV in LFT hand infusing NS @100mls. IV in LAC SL; both sites clean and intact. Denies any pain as well as N/D/V at this time. Bed in lowest position. Call light within reach; verbalized understanding of use.
--- NOTE | 2024-05-26 14:19 | NUR ---
IV site discontinued, cath intact. No edema , no redness, voices no discomfort. Discharge instructions given. Patient verbalizes understanding of same. Discharged in stable condition via Wheelchair to [facility] with family. All belongings sent with pt.
--- NOTE | 2024-05-26 14:20 | NUR ---
Report given to nurse at [facility]. IV in both LAC and Lft hand removed. Tele removed and placed in bin at nursing station.
--- NOTE | 2024-05-26 16:55 | NUR ---
TOM AT [facility] CALLED REGARDING PATIENT; REQUESTING AN ORDER FOR PATEINT UPDATED DIET REGARDING THICKEN LIQUID; PER NOTES FROM NURSES SPEECH CONSULT WAS COMLLETED ON 05/22/24, BUT THERE IS NO NOTES FROM SPEECH ON RESULTS FROM THE SPEECH AND SWALLOW TEST NOR ARE THERE ANY ORDERS REGARDING A CHANGE IN PATIENT LIQUIDS FOR THICKEN, INFORMED HER AND STATES SHE SALOMON GET A SPEECH TEST AT THE REHAB AND START FROM THEIR REPORT
== END 2024-05-26 14:19 | DRG 871 ==
LOC: ED 19:54 → ED-I 21:12 → ED 21:12 → ED-I 21:49 → ED 22:06 → MS2 22:07
PROVIDERS: Emergency Medicine; Nurse Practitioner Family; ADMIT Internal Medicine; ATTEND Internal Medicine
PROC: 0T9B70Z Drainage of Bladder with Drainage Device, Via Natural or Artificial Opening (ICD-10-PCS; principal; 2024-05-24)
DX: A41.89 Other specified sepsis (principal); U07.1 COVID-19; C34.90 Malignant neoplasm of unspecified part of unspecified bronchus or lung; B37.0 Candidal stomatitis; C78.7 Secondary malignant neoplasm of liver and intrahepatic bile duct; Z16.12 Extended spectrum beta lactamase (ESBL) resistance; C79.89 Secondary malignant neoplasm of other specified sites; N30.00 Acute cystitis without hematuria; A04.0 Enteropathogenic Escherichia coli infection; C78.02 Secondary malignant neoplasm of left lung; C78.01 Secondary malignant neoplasm of right lung; J20.8 Acute bronchitis due to other specified organisms; R65.20 Severe sepsis without septic shock; B96.20 Unspecified Escherichia coli [E. coli] as the cause of diseases classified elsewhere; E86.0 Dehydration; I10 Essential (primary) hypertension; I48.0 Paroxysmal atrial fibrillation; F03.90 Unspecified dementia, unspecified severity, without behavioral disturbance, psychotic disturbance, mood disturbance, and anxiety; E03.9 Hypothyroidism, unspecified; E78.5 Hyperlipidemia, unspecified; I65.29 Occlusion and stenosis of unspecified carotid artery; Z66 Do not resuscitate; Z86.711 Personal history of pulmonary embolism; Z95.828 Presence of other vascular implants and grafts; Z86.718 Personal history of other venous thrombosis and embolism; Z79.01 Long term (current) use of anticoagulants; Z86.73 Personal history of transient ischemic attack (TIA), and cerebral infarction without residual deficits; Z90.49 Acquired absence of other specified parts of digestive tract; Z85.038 Personal history of other malignant neoplasm of large intestine
CPT/HCPCS: Q9967